=== PATIENT | male | born 1965 | race Caucasian/White ===

== ENCOUNTER → 2016-07-26 | Outpatient (CLI) | payer BC ==
[~2016-07-26] MED LIST: AMLH/550 PO; CALCTAB5 PO; CHOLESTEROL MED PO; FLUO10CA48 PO; HYDR-3419 PO; POTA1080 PO; SIMV-151; TADA5TAB11 PO; [UNRECOGNIZED DRUG - REMARK] PO
[2016-07-26 16:42] LABS: BLOOD UREA NITROGEN 14 mg/dl (7-18); BUN/CREATININE RATIO 13.6 (10-20); CARBON DIOXIDE 29 mmol/L (21-32); CHLORIDE 101 mmol/L (98-107); GLUCOSE 98 mg/dl (70-99); POTASSIUM 3.8 mmol/L (3.5-5.1); SODIUM 139 mmol/L (136-145)
== END | disposition home or self-care (01) ==
LOC: C.LAB 15:29
PROVIDERS: ATTEND Urology
DX: R97.20 Elevated prostate specific antigen [PSA] (principal)

== ENCOUNTER → 2016-11-25 | Outpatient (CLI) | payer BC ==
--- NOTE | 2016-11-25 11:32 | DIAGNOSTIC IMAGING REPORT ---
KUB CLINICAL HISTORY: N20.0 [id number] nephrocalcinosis COMPARISON STUDY: 04/23/2016 FINDINGS: 2 right renal calcifications unchanged from the prior study. Potential faint peripheral left mid pole renal calcification. No significant paravertebral calcifications. Nonobstructive bowel pattern. IMPRESSION: Nephrocalcinosis unchanged from the prior study. Electronically signed by: Rubin Nolen M.D. 11/25/2016 11:31 AM Dictated Date/Time: 11/25/2016 11:30 AM
--- NOTE | 2016-11-29 11:53 | CODING QUERY MEDICAL NECESSITY ---
SUPPORTING DIAGNOSIS NEEDED A supporting diagnosis is required for the test/procedure performed on this patient in order for us to be reimbursed by the patient's insurance. Please provide a supporting diagnosis for the following test/procedure listed below next to the test name along with your signature. *If there is no additional diagnosis for this patient that would support the following test/procedure please document that below next to the test/procedure. Test(s)/Procedure(s) that require a supporting diagnosis: * PSA DIAGNOSIS: Provider Signature: Date: Thank you Shi Parikh [employer] Once completed, please kindly fax back to [phone] For questions please call [phone]
== END | disposition home or self-care (01) ==
LOC: C.RAD 10:52
PROVIDERS: ATTEND Urology
DX: N20.0 Calculus of kidney (principal); E83.59 Other disorders of calcium metabolism; N29 Other disorders of kidney and ureter in diseases classified elsewhere; N40.1 Benign prostatic hyperplasia with lower urinary tract symptoms

== ENCOUNTER → 2016-11-30 | Outpatient (CLI) | payer BC ==
--- NOTE | 2016-11-30 17:28 | DIAGNOSTIC IMAGING REPORT ---
CHEST 2 VIEWS ROUTINE CLINICAL HISTORY: N20.0 [id number] nephrocalcinosis COMPARISON STUDY: 06/24/2015 FINDINGS: The bones soft tissues and hemidiaphragms are normal. The cardiomediastinal silhouette is normal. The lungs are clear. The pulmonary vasculature is normal. IMPRESSION: Negative chest. Electronically signed by: Rubin Nolen M.D. 11/30/2016 5:27 PM Dictated Date/Time: 11/30/2016 5:27 PM
--- NOTE | 2016-11-30 17:30 | DIAGNOSTIC IMAGING REPORT ---
KUB CLINICAL HISTORY: N20.0 [id number] nephrocalcinosis COMPARISON STUDY: 11/25/2016 FINDINGS: Right kidney is obscured by fecal material and cannot be evaluated. No definite left renal central calcifications. Faint calcification peripheral aspect left kidney is unchanged. IMPRESSION: 1. Unchanged punctate peripheral left renal calcification. 2. Right kidney is obscured by fecal material. Electronically signed by: Rubin Nolen M.D. 11/30/2016 5:29 PM Dictated Date/Time: 11/30/2016 5:28 PM
[2016-11-30 17:44] LABS: BASO % 0.3 %; BASO ABS # 0.02 K/uL (0-0.2); COMPLETE YES; EOS % 1.9 %; HEMATOCRIT 43.8 % (42-52); IG% 0.3 %; LYMPH % 22.2 %; LYMPH ABS # 1.42 K/uL (1.2-3.4); MEAN CELL VOLUME 89.9 fL (80-100); MEAN CORPUSCULAR HEMOGLOBIN 31.8 pg (25-34); MEAN CORPUSCULAR HGB CONC 35.4 g/dl (32-36); MEAN PLATELET VOLUME 11.1 fL (7.4-10.4); MONO % 9.5 %; NEUT % 65.8 %; PLATELET COUNT 169 K/uL (130-400); RED BLOOD COUNT 4.87 M/uL (4.7-6.1); WHITE BLOOD COUNT 6.39 K/uL (4.8-10.8)
[2016-11-30 18:04] LABS: BLOOD UREA NITROGEN 18 mg/dl (7-18); BUN/CREATININE RATIO 16.4 (10-20); CALCIUM 9.2 mg/dl (8.5-10.1); CARBON DIOXIDE 30 mmol/L (21-32); CHLORIDE 102 mmol/L (98-107); GLUCOSE 111 mg/dl (70-99); POTASSIUM 3.4 mmol/L (3.5-5.1); SODIUM 140 mmol/L (136-145)
== END | disposition home or self-care (01) ==
LOC: C.CPL 16:25
PROVIDERS: ATTEND Urology
DX: N20.0 Calculus of kidney (principal)

== ENCOUNTER → 2016-12-02 | Outpatient (CLI) | payer BC ==
--- NOTE | 2016-12-02 17:02 | DIAGNOSTIC IMAGING REPORT ---
KUB HISTORY: Nephrolithiasis. COMPARISON: KUB 11/30/2016. FINDINGS: The bowel gas pattern is unremarkable. There are no dilated loops of small bowel to suggest an obstruction. The right kidney is obscured by overlying bowel. No change in the punctate stone within the periphery of the left kidney. No ureteral or bladder calculi identified. No pneumoperitoneum or pneumatosis. IMPRESSION: 1. Right kidney is obscured by overlying bowel. 2. No change in the punctate calcification at the periphery of the left kidney. This may represent a small stone. 3. No ureteral calculi. Electronically signed by: Sundeep Rao M.D. 12/02/2016 5:01 PM Dictated Date/Time: 12/02/2016 4:59 PM
== END | disposition home or self-care (01) ==
LOC: C.RAD 16:16
PROVIDERS: ATTEND Urology
DX: N20.0 Calculus of kidney (principal)

== ENCOUNTER → 2016-12-03 | Day surgery (SDC) | payer BC ==
[2016-12-02 13:49] VITALS: Ht 162.6 cm; Wt 100.0 kg
[~2016-12-03] VITALS: Ht 162.6 cm; Wt 100.0 kg
[~2016-12-03] MED LIST changes: +ATROPINE SULFATE 0.1 MG/ML 5ML SYR IV PRN; +CIPROFLOXACIN 400MG / D5W IV SCH; +DEXAMETHASONE SOD INJ 4 MG/ML VIAL ONE; +FENTANYL CITRATE INJ 50 MCG/1 ML 2 ML VIAL IV PRN; +FENTANYL CITRATE INJ 50 MCG/1 ML 2 ML VIAL ONE; +LABETALOL HCL IV 5 MG/ML 20ML IV PRN; +LACTATED RINGER'S 1000ML 1,000 ML IV SCH; +LIDOCAINE HCL 2% 2 ML VIAL (20MG/ML) ONE; +MIDAZOLAM HCL 1 MG/ML 2ML VIAL ONE; +ONDANSETRON INJ 2 MG/ML 2 ML VIAL IV PRN; +ONDANSETRON INJ 2 MG/ML 2 ML VIAL ONE; +PROPOFOL IV EMULSION 10 MG/ML 20 ML VIAL IV ONE
--- NOTE | 2016-12-03 10:47 | History & Physical Bridge - SC ---
H&P Re-Evaluation Bridge Note: I have examined the patient, reviewed the History & Physical and in the interval since the performance of the History & Physical I have noted the following changes of clinical significance: No changes noted
--- NOTE | 2016-12-03 11:39 | [facility] Post Operative Brief Note ---
Immediate Operative Summary Operative Date Dec 03, 2016. Pre-Operative Diagnosis Right Renal Calculi Post-Operative Diagnosis Same Procedure(s) Performed Same Surgeon Dr. Damon Ford Lathe Puller Surgeon(s) None Estimated Blood Loss 0 Findings stone in r kidney appeared to fragment Specimens Same Disposition Recovery Room / PACU
--- NOTE | 2016-12-03 11:41 | Discharge Instructions-SurgCtr ---
Discharge Instructions Date of Service Dec 03, 2016. Visit Reason for Visit: STONE Discharge Discharge Diagnosis / Problem: post op r eswl Discharge Goals Goal(s): Decrease discomfort, Increase independence, Improve disease control Activity Recommendations Activity Limitations: resume your previous activity Anesthesia . Post Anesthesia Instructions: If you have had General Anesthesia or IV Sedation: * Do not drive today. * Resume driving when surgeon permits. * Do not make important decisions or sign legal documents today. * Call surgeon for: 1. Temperature elevations greater than 101 degrees F. 2. Uncontrollable pain. 3. Excessive bleeding. 4. Persistent nausea and vomiting. 5. Medication intolerance (nausea, vomiting or rash). * For nausea and vomiting use only clear liquids such as: tea, soda, bouillon until nausea subsides, then gradually increase diet as tolerated. * If you have any concerns or questions, call your surgeon's office. If physician is unavailable and it is an emergency, call 911 or go to the nearest emergency room. . Diet Recommendations Home Diet: resume previous diet Procedures Procedures Performed: Same Pending Studies Studies pending at discharge: no Medical Emergencies . Who to Call and When: Medical Emergencies: If at any time you feel your situation is an emergency, please call 911 immediately. . Non-Emergent Contact Non-Emergency issues call your: Urologist . . "Provider Documentation" section prepared by Dano Ford. .
[2016-12-03 12:18] VITALS: TEMP 36.3
[2016-12-03 12:40] VITALS: BP 139/85; PULSE 67; O2SAT 98
--- NOTE | 2016-12-03 13:12 | Anesthesia Progress Nt - [facility] ---
Anesthesia Post Op Note Date & Time Dec 03, 2016 at 13:12 Vital Signs Pain Intensity: 0 Vital Signs Past 12 Hours Date Time Temp Pulse Resp B/P (MAP) Pulse Ox O2 Delivery O2 Flow Rate FiO2 12/03/16 12:40 67 18 139/85 (103) 98 Room Air 12/03/16 12:18 36.3 72 20 145/84 (104) 98 Room Air 12/03/16 12:12 74 20 12/03/16 12:12 76 20 93 12/03/16 12:12 36.6 76 16 123/73 95 Room Air 12/03/16 12:11 123/73 12/03/16 12:07 76 17 96 12/03/16 12:07 76 17 12/03/16 12:06 128/77 12/03/16 12:02 73 15 12/03/16 12:02 74 15 99 12/03/16 12:01 74 16 12/03/16 12:01 76 16 125/84 99 12/03/16 11:56 76 10 12/03/16 11:56 76 10 127/85 99 12/03/16 11:51 80 13 127/70 97 12/03/16 11:51 80 13 12/03/16 11:46 75 7 102/81 96 12/03/16 11:46 76 7 12/03/16 11:46 36.3 77 12 102/81 96 Diffusion Mask 12/03/16 09:25 66 115/73 (87) 94 Room Air 12/03/16 09:20 66 112/73 (86) 93 Room Air 12/03/16 09:15 65 109/69 (82) 93 Room Air 12/03/16 09:10 64 115/74 (88) 94 Room Air 12/03/16 09:05 72 111/74 (86) 97 Room Air 12/03/16 09:01 56 14 107/65 (79) 94 Room Air 12/03/16 08:56 42 16 87/53 (64) 43 Room Air 12/03/16 08:28 36.8 79 20 151/94 (113) 97 Room Air Notes Mental Status: alert / awake / arousable, participated in evaluation Pt Amnestic to Procedure: Yes Nausea / Vomiting: adequately controlled Pain: adequately controlled Airway Patency, RR, SpO2: stable & adequate BP & HR: stable & adequate Hydration State: stable & adequate Anesthetic Complications: no major complications apparent
--- NOTE | 2016-12-03 15:15 | [facility] Operative Report ---
Operative Report Operative Date Dec 03, 2016. Pre-Operative Diagnosis Right Renal Calculi Procedure(s) Performed right renal eswl Surgeon Dr. Damon Ford Cotton Dispatcher Surgeon(s) None Estimated Blood Loss 0 Findings small r renal stone with good fragmentation Specimens Same Disposition Recovery Room / PACU Description of Procedure Patient was taken to the operating room after being given antibiotics and Venodyne stockings had been placed. He was placed in supine position and given general anesthesia. The fluoroscopy of the lithotripsy machine was used to visualize the stone and 2 views. Once the stone was localized patient received 2500 shocks many at level V and at the end of this procedure the stone appeared to fragment. The patient was transferred to recovery room in stable condition I attest to the content of the Intraoperative Record and any orders documented therein. Any exceptions are noted below.
== END | disposition home or self-care (01) ==
LOC: X.SURG 07:47
PROVIDERS: ATTEND Urology
DX: N20.0 Calculus of kidney (principal); I10 Essential (primary) hypertension; Z80.42 Family history of malignant neoplasm of prostate; Z82.49 Family history of ischemic heart disease and other diseases of the circulatory system; Z87.891 Personal history of nicotine dependence; E78.5 Hyperlipidemia, unspecified; Z79.899 Other long term (current) drug therapy

== ENCOUNTER → 2017-03-09 | Outpatient (CLI) | payer BC ==
[~2017-03-09] MED LIST changes: -ATROPINE SULFATE 0.1 MG/ML 5ML SYR IV PRN; -CALCTAB5 PO; -CHOLESTEROL MED PO; -CIPROFLOXACIN 400MG / D5W IV SCH; -DEXAMETHASONE SOD INJ 4 MG/ML VIAL ONE; -FENTANYL CITRATE INJ 50 MCG/1 ML 2 ML VIAL IV PRN; -FENTANYL CITRATE INJ 50 MCG/1 ML 2 ML VIAL ONE; -LABETALOL HCL IV 5 MG/ML 20ML IV PRN; -LACTATED RINGER'S 1000ML 1,000 ML IV SCH; -LIDOCAINE HCL 2% 2 ML VIAL (20MG/ML) ONE; -MIDAZOLAM HCL 1 MG/ML 2ML VIAL ONE; -ONDANSETRON INJ 2 MG/ML 2 ML VIAL IV PRN; -ONDANSETRON INJ 2 MG/ML 2 ML VIAL ONE; -PROPOFOL IV EMULSION 10 MG/ML 20 ML VIAL IV ONE; -TADA5TAB11 PO; -[UNRECOGNIZED DRUG - REMARK] PO
[2017-03-09 17:45] LABS: CHOLESTEROL/HDL RATIO 3.2
== END | disposition home or self-care (01) ==
LOC: C.LABBFT 15:35
PROVIDERS: ATTEND Physician Assistant Medical
DX: E78.5 Hyperlipidemia, unspecified (principal); R73.01 Impaired fasting glucose

== ENCOUNTER → 2017-03-22 | Outpatient (CLI) | payer BC ==
[2017-03-22 17:45] LABS: ALT/SGPT 50 U/L (12-78); AST/SGOT 20 U/L (15-37); BLOOD UREA NITROGEN 19 mg/dl (7-18); BUN/CREATININE RATIO 15.7 (10-20); CARBON DIOXIDE 29 mmol/L (21-32); CHLORIDE 104 mmol/L (98-107); CREATININE 1.19 mg/dl (0.60-1.40); GLUCOSE 107 mg/dl (70-99); POTASSIUM 3.7 mmol/L (3.5-5.1); SODIUM 140 mmol/L (136-145)
[2017-03-22 17:48] LABS: ALKALINE PHOSPHATASE 58 U/L (45-117)
== END | disposition home or self-care (01) ==
LOC: C.LABBFT 14:28
PROVIDERS: ATTEND Physician Assistant Medical
DX: E78.5 Hyperlipidemia, unspecified (principal)

== ENCOUNTER → 2017-07-25 | Outpatient (CLI) | payer BC ==
[~2017-07-25] MED LIST changes: -HYDR-3419 PO
[2017-07-25 17:20] LABS: BLOOD UREA NITROGEN 21 mg/dl (7-18); CALCIUM 9.3 mg/dl (8.5-10.1); CARBON DIOXIDE 30 mmol/L (21-32); CREATININE 1.21 mg/dl (0.60-1.40); GLUCOSE 98 mg/dl (70-99); POTASSIUM 3.7 mmol/L (3.5-5.1); SODIUM 141 mmol/L (136-145)
== END ==
LOC: C.LAB 15:34
PROVIDERS: ATTEND Urology
DX: N20.0 Calculus of kidney (principal)

== ENCOUNTER → 2017-08-24 | Outpatient (CLI) | payer BC | END | disposition home or self-care (01) | LOC: C.LABBFT 15:20 | PROVIDERS: ATTEND Physician Assistant Medical | DX: Z00.00 Encounter for general adult medical examination without abnormal findings (principal) ==

== ENCOUNTER → 2018-01-20 | Outpatient (CLI) | payer BC | END | disposition home or self-care (01) | LOC: C.LAB 13:44 | PROVIDERS: ATTEND Urology | DX: N20.0 Calculus of kidney (principal) ==

== ENCOUNTER 2018-10-24 22:11 | Observation (INO) ==
[2018-10-24] MEDS ORDERED: MoRPHine SULFATE 10 MG/ML CARP/VIAL IV STA (22:58)
[2018-10-24] MEDS ORDERED: SODIUM CHLORIDE 0.9% 1000ML 1,000 ML IV ONE (22:58)
[2018-10-24] MEDS ORDERED: ONDANSETRON INJ 2 MG/ML 2 ML VIAL IV STA (22:58)
[2018-10-24] MEDS ORDERED: MoRPHine SULFATE 4 MG/ML 1 ML CARP\\VIAL ONE (23:11)
[2018-10-24 23:25] LABS: Partial Thromboplastin Ratio 0.9; Partial Thromboplastin Time 25.1 Seconds (21.0-31.0)
[2018-10-24 23:34] LABS: iSTAT Creatinine 1.2 mg/dl (0.6-1.3); iSTAT Ionized Calcium 1.15 mmol/l (1.12-1.32); iSTAT Potassium 3.7 mEq/L (3.3-5.0)
[2018-10-24 23:35] LABS: Alanine Aminotransferase 43 U/L (12-78); Albumin Level 4.1 gm/dl (3.4-5.0); Aspartate Aminotransferase 29 U/L (15-37); BUN Creatinine Ratio 12.5 (10-20); Blood Urea Nitrogen 15 mg/dl (7-18); Calcium 9.6 mg/dl (8.5-10.1); Carbon Dioxide 29 mmol/L (21-32); Chloride 105 mmol/L (98-107); Creatinine Clr Calc Pharmacy 76.7 ml/min; Est GFR (African American) 79.3; Est GFR (Non-African American) 68.4; Glucose 123 mg/dl (70-99); Potassium 3.4 mmol/L (3.5-5.1); Sodium 140 mmol/L (136-145)
[2018-10-24 23:39] LABS: Appearance Urine Clear (Clear); Bilirubin Urine Negative (Negative); Blood Urine Negative (Negative); Color Urine Yellow; Glucose Urine UA Negative (Negative); Ketones Urine Negative (Negative); Leukocyte Esterase Urine Negative (Negative); Nitrite Urine Negative (Negative); Protein Urine Negative (Negative); Specific Gravity Urine 1.023 (1.000-1.030); Urobilinogen Urine Negative (Negative)
[2018-10-24 23:40] LABS: Alkaline Phosphatase 70 U/L (45-117); Bilirubin,Total 0.3 mg/dl (0.2-1); Globulin 4.3 gm/dl (2.5-4.0); Total Protein 8.4 gm/dl (6.4-8.2); Troponin I < 0.015 ng/ml (0-0.045)
[2018-10-24 23:53] LABS: Basophils # (auto) 0.02 K/uL (0-0.2); Basophils % (auto) 0.2 %; Eosinophils # (auto) 0.09 K/uL (0-0.5); Eosinophils % (auto) 0.9 %; Hematocrit (blood only) 47.8 % (42-52); Hemoglobin 16.8 g/dL (14.0-18.0); Immature Granulocytes # (auto) 0.02 K/uL (0.00-0.02); Immature Granulocytes % (auto) 0.2 %; Lymphocytes # (auto) 1.24 K/uL (1.2-3.4); Lymphocytes % (auto) 12.3 %; Mean Corpuscular Hgb Conc 35.1 g/dL (32-36); Mean Platelet Volume 10.8 fL (7.4-10.4); Monocytes # (auto) 0.55 K/uL (0.11-0.59); Monocytes % (auto) 5.5 %; Neutrophils # (auto) 8.17 K/uL (1.4-6.5); Neutrophils % (auto) 80.9 %; Platelet Count 203 K/uL (130-400); RDW Coefficient of Variation 12.9 % (11.5-14.5); Red Blood Count 5.43 M/uL (4.7-6.1); White Blood Count 10.09 K/uL (4.8-10.8)
[2018-10-25] MEDS: MoRPHine SULFATE 4 MG/ML 1 ML CARP\\VIAL IV PRN ×4 (00:03→07:55)
--- NOTE | 2018-10-25 00:51 | Emergency Department Note ---
History of Present Illness General Chief Complaint: Abdominal Pain Stated Complaint: ABDOMINAL PAIN, BACK PAIN, SWEATS, VOMITING Source: patient Mode of arrival: ambulatory Limitations: no limitations History of Present Illness Provider Complaint: abdominal pain Onset (ago): 5 hour(s) Pain Consistency: constant Location: RUQ and epigastric Radiation: back Migration to: no migration Severity: severe Maximum Pain Intensity: 6 Current Pain Intensity: 6 Quality: + fullness and + sharp Relieved By: + other (leaning forward) Exacerbated By: + eating Context: + history of similar episodes (x1 year associated with eating) Associated Symptoms: + nausea, + vomiting, + chills and + anorexia Treatments prior to arrival: none This 53-year-old male patient presents emergency department today, ambulatory, complaining of severe epigastric and right upper quadrant abdominal pain. The patient states he ate a hokey this evening which had a lot of oil. He states this was at approximately 5 PM. He noticed that his abdomen and felt extremely full at approximately 5 PM. He then developed vomiting and diaphoresis. Patient reports the pain is in the epigastrium radiating to the right upper quadrant and the back. He is taken no medications for his symptoms, but was drinking water. He states the water seem to flareup the pain as well. The patient denies any fever, diarrhea, constipation, chest pain, difficulty breathing. He states the pain does seem worse with deep breathing. He does have a history of similar symptoms for the past 1 year, worse with eating. He has not had this evaluated. He has been taking Nexium outpatient. The patient rates his pain 6/10 and describes it as a fullness. Home Medications Home Medications Medication Instructions Recorded Confirmed Type amiloride-hydrochlorothiazide 1 tab PO QAM 03/03/18 10/24/18 History potassium chloride 10 meq PO TID 03/03/18 10/24/18 History simvastatin 20 mg PO HS 03/03/18 10/24/18 History escitalopram oxalate 10 mg PO QAM 03/15/18 10/24/18 History ergocalciferol (vitamin D2) 50,000 unit PO WK 10/24/18 10/24/18 History [Vitamin D2] Allergies Allergy/AdvReac Type Severity Reaction Status Date / Time No Known Allergies Allergy Unknown Verified 10/24/18 22:35 Past Med/Surg History Medical History Encounter for screening colonoscopy Encounter for pre-operative examination Anxiety Depression HTN (hypertension) History of cellulitis LEFT LEG Kidney stones Obesity Seizure HX A CHILD-LAST AGE 11 YRS-NO MEDS SINCE CHILDHOOD Surgical History H/O lithotripsy X 3 Hx of shoulder surgery LEFT S/P cystoscopy with ureteral stent placement Family History Father Prostate cancer Social History Preferred Language: Faroese Communication Ability: Effective Beliefs That Will Affect Care: None Current Living Situation: Family Feels Safe at Home: Yes Smoking Status: Never smoker Tobacco Type: cigarettes Second Hand Exposure: No Hx Alcohol Use: Yes (hesitant to answer) Alcohol type: beer Hx Substance Use: No Review of Systems A total of 10 systems reviewed and were otherwise negative Physical Exam Vital Signs: Vital Signs - 24 hr 10/24/18 22:19 10/24/18 23:31 10/25/18 00:06 Temperature 36.4 C L Temperature Source Oral Sepsis Recent Feve r Within 48 Hours No Sepsis New/Unexpla ined Change in Men ann-marie Status No Sepsis Action Take n by Nursing No Action Required Pulse Rate 58 L Pulse Rate [Bilate ral] 56 L 56 L Pulse Rhythm Regular Pulse Rhythm [Bila teral] Regular Regular Pulse Strength Normal Pulse Strength [Bi lateral] Normal Normal Respiratory Rate 20 17 18 Respiratory Effort / Characteristics Non-Labored Sponta neous Non-Labored Sponta neous Non-Labored Sponta neous Respiratory Depth Normal Normal Normal Respiratory Patter n Regular Regular Blood Pressure 199/108 H Blood Pressure [Le ft Arm] 194/100 H Blood Pressure Sera n 138 Blood Pressure Sera n [Left Arm] 131 Blood Pressure Pos ition Sitting Blood Pressure Pos ition [Left Arm] Lying Pulse Oximetry 97 97 95 Oxygen Delivery Me thod Room Air Room Air Room Air Oxygen Flow Rate 10/25/18 00:52 Temperature Temperature Source Sepsis Recent Feve r Within 48 Hours Sepsis New/Unexpla ined Change in Men ann-marie Status Sepsis Action Take n by Nursing Pulse Rate Pulse Rate [Bilate ral] Pulse Rhythm Pulse Rhythm [Bila teral] Pulse Strength Pulse Strength [Bi lateral] Respiratory Rate Respiratory Effort / Characteristics Respiratory Depth Respiratory Patter n Blood Pressure Blood Pressure [Le ft Arm] Blood Pressure Sera n Blood Pressure Sera n [Left Arm] Blood Pressure Pos ition Blood Pressure Pos ition [Left Arm] Pulse Oximetry 87 L Oxygen Delivery Me thod Room Air Nasal Can nula Oxygen Flow Rate 0 Physical Exam: VITALS: Vitals are noted on the nurse's note and reviewed by myself. Vital signs stable. GENERAL: This is a 53-year-old white male, in no acute distress, but moving around due to severe pain, diaphoretic, well-developed well-nourished. SKIN: The skin was without rashes, erythema, edema, or bruising. There is no tenting of the skin. Capillary reflex less than 2 seconds. HEAD: Normocephalic atraumatic. EARS: External auditory canals clear, tympanic membranes pearly aviles without erythema or effusion bilaterally. EYES: Pupils equal round and reactive to light and accommodation. Conjunctivae without injection, sclerae without icterus. Extraocular movements intact. NOSE: Patent, turbinates without inflammation or discharge. No sinus tenderness. MOUTH: Mucous membranes moist. Tonsils are not enlarged. Pharynx without erythema or exudate. Uvula midline. Airway patent. Tongue does not deviate. NECK: Supple without nuchal rigidity. No lymphadenopathy. No thyromegaly. Cervical spine is nontender. No JVD. HEART: Regular rate and rhythm without murmurs gallops or rubs. LUNGS: Clear to auscultation bilaterally without wheezes, rales or rhonchi. No dullness to percussion. No retractions or accessory muscle use. ABDOMEN: Positive bowel sounds x 4. Normal tympanic percussion. Epigastric and right upper quadrant tenderness palpation. The abdomen was distended, but without masses or organomegaly. Valle sign positive. No guarding or rebound tenderness. MUSCULOSKELETAL: No muscle atrophy, erythema, or edema noted. Full range of motion without joint tenderness in all extremities. No tenderness to palpation. Normal gait. Strength 5/5 throughout. NEURO: Patient was alert and oriented to person place and time. Normal sensation to light and sharp touch. Deep tendon reflexes 2+ throughout. No focal neurological deficits. Course The patient was seen and evaluated as above. IV access obtained, labs drawn. Patient was given IV fluids, Zofran, and morphine. Imaging performed and reviewed by myself and radiologist as above. Patient given repeat dose of morphine. Labs reviewed by myself. I discussed the findings with the patient at bedside. I discussed the case with my attending. I discussed the case with Dr. Deleon, general surgeon. She did agree to see and evaluate the patient and place orders for admission. Please see her dictation regarding ongoing management care of this patient. Administered Medications Morphine Sulfate (Morphine Sulfate) 4 mg IV NOW PRN PRN Reason: Pain Stop: 11/07/18 23:58 Last Admin: 10/25/18 00:51 Dose: 4 mg Documented by: [id number] Admin: 10/25/18 00:03 Dose: 4 mg Documented by: [id number] Discontinued Medications Sodium Chloride (Nss 1000ml) 1,000 mls @ 999 mls/hr IV .Q1H1M ONE Stop: 10/24/18 23:58 Last Infusion: 10/25/18 00:21 Dose: 0 mls/hr Documented by: [id number] Admin: 10/24/18 23:19 Dose: 999 mls/hr Documented by: [id number] Morphine Sulfate (Morphine Sulfate) 8 mg IV NOW STA Stop: 10/24/18 22:59 Last Admin: 10/24/18 23:19 Dose: Not Given Documented by: [id number] Morphine Sulfate (Morphine Sulfate) Confirm Administered Dose 8 mg .ROUTE .STK- MED ONE Stop: 10/24/18 23:12 Last Admin: 10/24/18 23:17 Dose: 8 mg Documented by: [id number] Ondansetron HCl (Zofran) 4 mg IV NOW STA Stop: 10/24/18 22:59 Last Admin: 10/24/18 23:17 Dose: 4 mg Documented by: [id number] Medical Decision Making Differential Diagnosis + peptic ulcer disease, + biliary pathology, + UTI, + obstruction, + mesenteric ischemia, + aortic pathology, + infections, + inflammatory bowel disease, + renal colic, + torsion (male), + epididymitis (male), + abdominal pain, + appendicitis, + calculus of kidney, + constipation, + diverticulitis, + endometriosis, + gastroenteritis, + pancreatitis and + small bowel obstruction Home Medications Current Medication List: was personally reviewed by me Laboratory Data Attestation: I reviewed the patient's lab results. No leukocytosis, anemia, thrombocytopenia. Renal, hepatic function, and electrolytes without significant abnormality. Mild hyperglycemia 123. Coags normal. Urinalysis without evidence of blood or infection. Result diagrams: 10/24/18 22:40 10/24/18 22:40 Lab Results 10/24/18 10/24/18 10/24/18 Range/Units 22:40 22:40 22:40 WBC 10.09 (4.8-10.8) K/uL RBC 5.43 (4.7-6.1) M/uL Hgb 16.8 (14.0-18.0) g/dL POC Hgb (14.0-18.0) g/dl Hct 47.8 (42-52) % POC Hct (42-52) % MCV 88.0 (80-100) fL MCH 30.9 (25-34) pg MCHC 35.1 (32-36) g/dL RDW Std Deviation 41.0 (36.4-46.3) fL RDW Coeff of Beto 12.9 (11.5-14.5) % Plt Count 203 (130-400) K/uL MPV 10.8 H (7.4-10.4) fL Immature Gran % (Auto) 0.2 % Neut % (Auto) 80.9 % Lymph % (Auto) 12.3 % Keith % (Auto) 5.5 % Eos % (Auto) 0.9 % Baso % (Auto) 0.2 % Immature Gran # (Auto) 0.02 (0.00-0.02) K/uL Neut # (Auto) 8.17 H (1.4-6.5) K/uL Lymph # (Auto) 1.24 (1.2-3.4) K/uL Keith # (Auto) 0.55 (0.11-0.59) K/uL Eos # (Auto) 0.09 (0-0.5) K/uL Baso # (Auto) 0.02 (0-0.2) K/uL PT 10.0 (9.0-12.0) Seconds INR 1.0 (0.9-1.1) APTT 25.1 (21.0-31.0) Seconds PTT Ratio 0.9 POC Sodium (135-144) mEq/L Sodium 140 (136-145) mmol/L POC Potassium (3.3-5.0) mEq/L Potassium 3.4 L (3.5-5.1) mmol/L POC Chloride (101-112) mEq/L Chloride 105 (98-107) mmol/L Carbon Dioxide 29 (21-32) mmol/L POC Total CO2 (24-31) mEq/l Anion Gap 7.0 (3-11) POC Anion Gap (16-25) mmol/L POC BUN (7-18) mg/dl BUN 15 (7-18) mg/dl Creatinine 1.21 (0.6-1.4) mg/dl POC Creatinine (0.6-1.3) mg/dl Est Cr Clr Drug Dosing 76.7 ml/min Est GFR ( Amer) 79.3 Est GFR (Non-Af Amer) 68.4 BUN/Creatinine Ratio 12.5 (10-20) Glucose 123 H (70-99) mg/dl POC Glucose (other) (70-99) mg/dl Calcium 9.6 (8.5-10.1) mg/dl POC Ioniz Calcium Donavon (1.12-1.32) mmol/l Total Bilirubin 0.3 (0.2-1) mg/dl AST 29 (15-37) U/L ALT 43 (12-78) U/L Alkaline Phosphatase 70 (45-117) U/L Troponin I < 0.015 (0-0.045) ng/ml Total Protein 8.4 H (6.4-8.2) gm/dl Albumin 4.1 (3.4-5.0) gm/dl Globulin 4.3 H (2.5-4.0) gm/dl Albumin/Globulin Ratio 1.0 (0.9-2) Lipase 117 (73-393) U/L Urine Color Urine Appearance (Clear) Urine pH (4.5-7.5) Ur Specific [place] (1.000-1.030) Urine Protein (Negative) Urine Glucose (UA) (Negative) Urine Ketones (Negative) Urine Blood (Negative) Urine Nitrite (Negative) Urine Bilirubin (Negative) Urine Urobilinogen (Negative) Ur Leukocyte Esterase (Negative) 10/24/18 10/24/18 Range/Units 23:00 23:19 WBC (4.8-10.8) K/uL RBC (4.7-6.1) M/uL Hgb (14.0-18.0) g/dL POC Hgb 16.0 (14.0-18.0) g/dl Hct (42-52) % POC Hct 47 (42-52) % MCV (80-100) fL MCH (25-34) pg MCHC (32-36) g/dL RDW Std Deviation (36.4-46.3) fL RDW Coeff of Beto (11.5-14.5) % Plt Count (130-400) K/uL MPV (7.4-10.4) fL Immature Gran % (Auto) % Neut % (Auto) % Lymph % (Auto) % Keith % (Auto) % Eos % (Auto) % Baso % (Auto) % Immature Gran # (Auto) (0.00-0.02) K/uL Neut # (Auto) (1.4-6.5) K/uL Lymph # (Auto) (1.2-3.4) K/uL Keith # (Auto) (0.11-0.59) K/uL Eos # (Auto) (0-0.5) K/uL Baso # (Auto) (0-0.2) K/uL PT (9.0-12.0) Seconds INR (0.9-1.1) APTT (21.0-31.0) Seconds PTT Ratio POC Sodium 142 (135-144) mEq/L Sodium (136-145) mmol/L POC Potassium 3.7 (3.3-5.0) mEq/L Potassium (3.5-5.1) mmol/L POC Chloride 100 L (101-112) mEq/L Chloride (98-107) mmol/L Carbon Dioxide (21-32) mmol/L POC Total CO2 27 (24-31) mEq/l Anion Gap (3-11) POC Anion Gap 19.0 (16-25) mmol/L POC BUN 16 (7-18) mg/dl BUN (7-18) mg/dl Creatinine (0.6-1.4) mg/dl POC Creatinine 1.2 (0.6-1.3) mg/dl Est Cr Clr Drug Dosing ml/min Est GFR ( Amer) Est GFR (Non-Af Amer) BUN/Creatinine Ratio (10-20) Glucose (70-99) mg/dl POC Glucose (other) 137 H (70-99) mg/dl Calcium (8.5-10.1) mg/dl POC Ioniz Calcium Don[place]on 1.15 (1.12-1.32) mmol/l Total Bilirubin (0.2-1) mg/dl AST (15-37) U/L ALT (12-78) U/L Alkaline Phosphatase (45-117) U/L Troponin I (0-0.045) ng/ml Total Protein (6.4-8.2) gm/dl Albumin (3.4-5.0) gm/dl Globulin (2.5-4.0) gm/dl Albumin/Globulin Ratio (0.9-2) Lipase (73-393) U/L Urine Color Yellow Urine Appearance Clear (Clear) Urine pH 5.0 (4.5-7.5) Ur Specific [place] 1.023 (1.000-1.030) Urine Protein Negative (Negative) Urine Glucose (UA) Negative (Negative) Urine Ketones Negative (Negative) Urine Blood Negative (Negative) Urine Nitrite Negative (Negative) Urine Bilirubin Negative (Negative) Urine Urobilinogen Negative (Negative) Ur Leukocyte Esterase Negative (Negative) Imaging Data Radiologist's Impression: US ABDOMEN LIMITED: Cholelithiasis without inflammatory changes. Distended common bile duct measuring about 1 cm. Positive sonographic Valle sign. Hepatic and renal cysts. Pancreas is obscured. Radiologist: Joana Mckeon M.D. ECG Data Attestation: I personally reviewed and interpreted this ECG as follows: Indication: abdominal pain Rate (beats per minute): 56 Rhythm: sinus bradycardia Findings: + RBBB (incomplete); no acute ischemic change and no ectopy Comparison ECG Date: from (March 2018) Change: no significant change Blood Pressure Blood Pressure Findings: Elevated blood pressure Blood Pressure Disposition: elevated BP felt to be situational MDM Narrative This 53-year-old male patient presents emergency department today complaining of severe epigastric and right upper quadrant abdominal pain which began after eating a hoagie. The patient has been expensing intermittent symptoms for 1 year, but this is the most severe he has ever experienced. His pain is very difficult to control, but he does well with IV narcotics. He was experiencing intractable nausea vomiting prior to arrival. He was medicated in the emergency department with IV fluids and Zofran in addition to the pain medicine. Ultrasound shows evidence of cholelithiasis without inflammatory changes. There is a distended CBD 1 cm with a positive sonographic Valle sign. I suspect cholecystitis as the etiology of the patient's pain and consulted the general s urgeon conservation science teacher. Spoke with Dr. Deleon and advised her if the patient condition. She did agree to see and evaluate the patient and admit him for further work- up. I discussed this recommendation with the patient and his at bedside. They were agreeable. Please see Dr. Deleon's dictation regarding ongoing management care of this patient. The chart was completed utilizing [employer] voice recognition software. Grammatical errors, random word insertions, pronoun errors, and incomplete se ntences are an occasional consequence of this system due to software limitations, ambient noise, and hardware issues. Any formal questions or concerns about the content, text, or information contained within the body of this dictation should be directly addressed to the provider for clarification. Impression & Plan Abdominal pain, acute, right upper quadrant, Cholelithiasis, Common bile duct dilatation Discharge Plan Visit Data Chief Complaint: Abdominal Pain Stated Complaint: ABDOMINAL PAIN, BACK PAIN, SWEATS, VOMITING ED Provider: Elian Leigh ED Midlevel Provider: Edith Win Discharge Problem: Abdominal pain, acute, right upper quadrant, Cholelithiasis, Common bile duct dilatation Patient Disposition: Admitted As Inpatient Forms Stand Alone Forms: Call Back Authorization, [facility] Prescriptions Prescriptions: No Action ergocalciferol (vitamin D2) [Vitamin D2] 50,000 unit capsule 50,000 unit PO WK RF: 0 potassium chloride 10 mEq Capsule, Extended Release 10 meq PO TID RF: 0 amiloride-hydrochlorothiazide 5-50 mg Tablet 1 tab PO QAM RF: 0 simvastatin 20 mg Tablet 20 mg PO HS RF: 0 escitalopram oxalate 10 mg Tablet 10 mg PO QAM RF: 0 Referrals Referrals: Maynor Engle III, MD [Primary Care Provider] -
[2018-10-25] MEDS ORDERED: ONDANSETRON INJ 2 MG/ML 2 ML VIAL IV PRN ×2 (02:05→10:24)
[2018-10-25] MEDS ORDERED: OXYCODONE/ACETAMINOPHEN 5mg/325mg TAB PO PRN (02:05)
[2018-10-25] MEDS ORDERED: MoRPHine SULFATE 2 MG/ML CARP IV PRN ×2 (02:05)
[2018-10-25] MEDS: LACTATED RINGER'S 1,000 ML IV SCH ×2 (03:03→13:42)
[2018-10-25] MEDS: AMPICILLIN/SULBACTAM SOD 1,500 MG in 0.9 % SODIUM CHLORIDE 100 ML IV SCH ×4 (03:03→21:02)
[2018-10-25] MEDS: HydrALAZINE HCL 20 MG/ML VIAL IV PRN ×2 (03:17→07:54)
[2018-10-25] MEDS: OXYCODONE/ACETAMINOPHEN 5mg/325mg TAB PO PRN ×2 (05:40→09:30)
--- NOTE | 2018-10-25 06:24 | XRay Report ---
XR chest 1V portable HISTORY: 53 years-old Male epigastric pain acute epigastric abdominal pain COMPARISON: Chest radiograph 03/15/2018 TECHNIQUE: Portable AP view of the chest FINDINGS: Cardiomediastinal and hilar silhouettes are within normal limits. No pneumothorax, pleural effusion, focal airspace consolidation or overt pulmonary edema. Healed remote distal left clavicular fracture with postoperative changes or post traumatic osteolysis of the distal left clavicle. IMPRESSION: No acute process. The above report was generated using voice recognition software. It may contain grammatical, syntax o r spelling errors. Electronically signed by: Braulio Castillo M.D. 10/25/2018 6:22 AM
--- NOTE | 2018-10-25 07:20 | Ultrasound Report ---
ABDOMINAL ULTRASOUND, RIGHT UPPER QUADRANT HISTORY: RUQ and epigastric pain/tenderness. COMPARISON: Abdomen and pelvis CT 03/15/2018. FINDINGS: Pancreas: Obscured by overlying bowel gas. Liver: The liver is echogenic consistent with fatty change. A 2.3 cm cyst within the left hepatic lob e. Gallbladder: No gallbladder wall thickening. A few gallstones with the largest in the neck measuring 2.2 cm. The technologist reported positive sonographic Valle's sign. CBD: Measuring up to 1 cm. Right kidney: No hydronephrosis. A 3.7 cm cyst. IMPRESSION: Cholelithiasis without significant gallbladder wall thickening. The common bile duct is distended up to 1 cm. In the setting of a positive sonographic Valle's sign this is concerning for acute cholecys titis. Clinical correlation recommended. Electronically signed by: Sundeep Rao M.D. 10/25/2018 7:18 AM
[2018-10-25] MEDS: ESCITALOPRAM OXALATE 10 MG TAB PO SCH (08:06)
[2018-10-25] MEDS: AMILORIDE/HCTZ 5/50MG TAB PO SCH (08:06)
[2018-10-25] MEDS: POTASSIUM CHLORIDE 10 MEQ TABCR PO SCH ×3 (08:06→20:49)
--- NOTE | 2018-10-25 08:48 | History & Physical Report ---
Date of Service October 25, 2018 Assessment & Plan (1) Abdominal pain, acute, right upper quadrant: This patient has right upper quadrant pain with cholelithiasis. There is evidence that the common bile duct is dilated but his LFTs are normal. He has had symptoms similar to this in the past but they have resolved. He may have early cholecystitis. There is no wall thickening by ultrasound at the present time. I recommended cholecystectomy. I explained we will going to try to do a laparoscopically but that it may need to be converted to an open procedure. He understands. I explained the possible complications and answered his questions. He has signed a consent form. His blood pressure is elevated with diastolics between 101 110. His systolics have been above 170. I have consulted internal medicine for help with blood pressure control. History of Present Illness Chief Complaint: Right upper quadrant abdominal pain Primary Care Provider: Maynor Engle MD This is a 53-year-old male who presented to the emergency room with a complaint of right upper quadrant pain. It began last night after having eaten hoagie at 5:00. The pain is located in the right subcostal region and extends up into the lower right thorax area. If he takes a deep breath it is exacerbated. Pain was also exacerbated during the ultrasound. The pain was sharp. He is received morphine for pain. That has decreased the pain to more of a dull ache but it is still fairly intense. He has had pain similar to this in the past however it resolved spontaneously. This was associated with some nausea. He has not had a change in his bowel habits beyond what happened after a colonoscopy. He has occasional hematochezia following his polypectomy. There is no melena. He has no shortness of breath. His blood pressure since admission has been elevated. He has a history of hypertension. Allergies Allergy/AdvReac Type Severity Reaction Status Date / Time No Known Allergies Allergy Unknown Verified 10/24/18 22:35 Home Medications Home Medications Medication Instructions Recorded Confirmed Type amiloride-hydrochlorothiazide 1 tab PO QAM 03/03/18 10/24/18 History potassium chloride 10 meq PO TID 03/03/18 10/24/18 History simvastatin 20 mg PO HS 03/03/18 10/24/18 History escitalopram oxalate 10 mg PO QAM 03/15/18 10/24/18 History ergocalciferol (vitamin D2) 50,000 unit PO WK 10/24/18 10/24/18 History [Vitamin D2] Past Med/Surg History Family History Father Prostate cancer Social History Preferred Language: Samoan Communication Ability: Effective Marketing Regional Consultant Required: No Beliefs That Will Affect Care: None Current Living Situation: Family Feels Safe at Home: Yes Safety Concerns: Feels Safe At This Time Smoking Status: Never smoker Tobacco Type: cigarettes Second Hand Exposure: No Hx Alcohol Use: Yes Alcohol type: beer Hx Substance Use: No Review of Systems Review of Systems: All systems reviewed & are unremarkable except as noted in HPI & below Physical Exam Constitutional: well developed; no acute distress Neck: normal visual inspection Respiratory: normal respiratory effort, lungs clear to auscultation Cardiovascular: Rate/Rhythm: regular rate and regular rhythm Gastrointestinal (Abdomen): Inspection/Auscultation: abdomen not distended Percussion/Palpation: + abdomen tender (Right upper quadrant and subcostal region to moderate palpation) and abdomen soft Skin: no rashes, warm and dry Lymphatic: no cervical lymphadenopathy Results & Data Vital Signs (Past 12 Hours) Vital Signs Temp Pulse Pulse Pulse Pulse Resp BP 10/25/18 07:35 37.1 C 104 H 20 10/25/18 06:07 10/25/18 03:59 10/25/18 02:09 36.5 C 49 L 18 10/25/18 01:53 57 L 18 196/106 H 10/25/18 00:52 10/25/18 00:06 56 L 18 10/24/18 23:31 56 L 17 10/24/18 22:19 36.4 C L 58 L 20 199/108 H BP Pulse Ox 10/25/18 07:35 182/102 H 92 10/25/18 06:07 166/98 H 10/25/18 03:59 173/103 H 10/25/18 02:09 197/108 H 96 10/25/18 01:53 97 10/25/18 00:52 87 L 10/25/18 00:06 194/100 H 95 10/24/18 23:31 97 10/24/18 22:19 97 Laboratory Results 10/24/18 10/24/18 10/24/18 Range/Units 23:19 23:00 22:40 WBC (4.8-10.8) K/uL RBC (4.7-6.1) M/uL Hgb (14.0-18.0) g/dL POC Hgb 16.0 (14.0-18.0) g/dl Hct (42-52) % POC Hct 47 (42-52) % MCV (80-100) fL MCH (25-34) pg MCHC (32-36) g/dL RDW Std Deviation (36.4-46.3) fL RDW Coeff of Beto (11.5-14.5) % Plt Count (130-400) K/uL MPV (7.4-10.4) fL Immature Gran % (Auto) % Neut % (Auto) % Lymph % (Auto) % [place] % (Auto) % Eos % (Auto) % Baso % (Auto) % Immature Gran # (Auto) (0.00-0.02) K/uL Neut # (Auto) (1.4-6.5) K/uL Lymph # (Auto) (1.2-3.4) K/uL [place] # (Auto) (0.11-0.59) K/uL Eos # (Auto) (0-0.5) K/uL Baso # (Auto) (0-0.2) K/uL PT (9.0-12.0) Seconds INR (0.9-1.1) APTT (21.0-31.0) Seconds PTT Ratio POC Sodium 142 (135-144) mEq/L Sodium 140 (136-145) mmol/L POC Potassium 3.7 (3.3-5.0) mEq/L Potassium 3.4 L (3.5-5.1) mmol/L POC Chloride 100 L (101-112) mEq/L Chloride 105 (98-107) mmol/L Carbon Dioxide 29 (21-32) mmol/L POC Total CO2 27 (24-31) mEq/l Anion Gap 7.0 (3-11) POC Anion Gap 19.0 (16-25) mmol/L POC BUN 16 (7-18) mg/dl BUN 15 (7-18) mg/dl Creatinine 1.21 (0.6-1.4) mg/dl POC Creatinine 1.2 (0.6-1.3) mg/dl Est Cr Clr Drug Dosing 76.7 ml/min Est GFR ( Amer) 79.3 Est GFR (Non-Af Amer) 68.4 BUN/Creatinine Ratio 12.5 (10-20) Glucose 123 H (70-99) mg/dl POC Glucose (other) 137 H (70-99) mg/dl Calcium 9.6 (8.5-10.1) mg/dl POC Ioniz Calcium [place] 1.15 (1.12-1.32) mmol/l Total Bilirubin 0.3 (0.2-1) mg/dl AST 29 (15-37) U/L ALT 43 (12-78) U/L Alkaline Phosphatase 70 (45-117) U/L Troponin I < 0.015 (0-0.045) ng/ml Total Protein 8.4 H (6.4-8.2) gm/dl Albumin 4.1 (3.4-5.0) gm/dl Globulin 4.3 H (2.5-4.0) gm/dl Albumin/Globulin Ratio 1.0 (0.9-2) Lipase 117 (73-393) U/L Urine Color Yellow Urine Appearance Clear (Clear) Urine pH 5.0 (4.5-7.5) Ur Specific [place] 1.023 (1.000-1.030) Urine Protein Negative (Negative) Urine Glucose (UA) Negative (Negative) Urine Ketones Negative (Negative) Urine Blood Negative (Negative) Urine Nitrite Negative (Negative) Urine Bilirubin Negative (Negative) Urine Urobilinogen Negative (Negative) Ur Leukocyte Esterase Negative (Negative) 10/24/18 10/24/18 Range/Units 22:40 22:40 WBC 10.09 (4.8-10.8) K/uL RBC 5.43 (4.7-6.1) M/uL Hgb 16.8 (14.0-18.0) g/dL POC Hgb (14.0-18.0) g/dl Hct 47.8 (42-52) % POC Hct (42-52) % MCV 88.0 (80-100) fL MCH 30.9 (25-34) pg MCHC 35.1 (32-36) g/dL RDW Std Deviation 41.0 (36.4-46.3) fL RDW Coeff of Beto 12.9 (11.5-14.5) % Plt Count 203 (130-400) K/uL MPV 10.8 H (7.4-10.4) fL Immature Gran % (Auto) 0.2 % Neut % (Auto) 80.9 % Lymph % (Auto) 12.3 % [place] % (Auto) 5.5 % Eos % (Auto) 0.9 % Baso % (Auto) 0.2 % Immature Gran # (Auto) 0.02 (0.00-0.02) K/uL Neut # (Auto) 8.17 H (1.4-6.5) K/uL Lymph # (Auto) 1.24 (1.2-3.4) K/uL [place] # (Auto) 0.55 (0.11-0.59) K/uL Eos # (Auto) 0.09 (0-0.5) K/uL Baso # (Auto) 0.02 (0-0.2) K/uL PT 10.0 (9.0-12.0) Seconds INR 1.0 (0.9-1.1) APTT 25.1 (21.0-31.0) Seconds PTT Ratio 0.9 POC Sodium (135-144) mEq/L Sodium (136-145) mmol/L POC Potassium (3.3-5.0) mEq/L Potassium (3.5-5.1) mmol/L POC Chloride (101-112) mEq/L Chloride (98-107) mmol/L Carbon Dioxide (21-32) mmol/L POC Total CO2 (24-31) mEq/l Anion Gap (3-11) POC Anion Gap (16-25) mmol/L POC BUN (7-18) mg/dl BUN (7-18) mg/dl Creatinine (0.6-1.4) mg/dl POC Creatinine (0.6-1.3) mg/dl Est Cr Clr Drug Dosing ml/min Est GFR ( Amer) Est GFR (Non-Af Amer) BUN/Creatinine Ratio (10-20) Glucose (70-99) mg/dl POC Glucose (other) (70-99) mg/dl Calcium (8.5-10.1) mg/dl POC Ioniz Calcium [place] (1.12-1.32) mmol/l Total Bilirubin (0.2-1) mg/dl AST (15-37) U/L ALT (12-78) U/L Alkaline Phosphatase (45-117) U/L Troponin I (0-0.045) ng/ml Total Protein (6.4-8.2) gm/dl Albumin (3.4-5.0) gm/dl Globulin (2.5-4.0) gm/dl Albumin/Globulin Ratio (0.9-2) Lipase (73-393) U/L Urine Color Urine Appearance (Clear) Urine pH (4.5-7.5) Ur Specific [place] (1.000-1.030) Urine Protein (Negative) Urine Glucose (UA) (Negative) Urine Ketones (Negative) Urine Blood (Negative) Urine Nitrite (Negative) Urine Bilirubin (Negative) Urine Urobilinogen (Negative) Ur Leukocyte Esterase (Negative) Diagnostic Findings [place] [phone] Ultrasound Report Patient: WARD GALVAN DAdmit Date: 10/25/18 MR#: [id number]: [id number] [address] [facility] Acct ID:[id number]: Date: 1965[facility] Zip: [place] [address] Age: 53Location: 3N Sex: M Room/Bed: [facility] Att Phy: Niru Deleon MDDiagnosis: acute cholecytitis Kelly Phy: Maynor Engle III, MDService Date: 10/24/18 Fam Phy: Interpreting Phy: Sundeep Rao MD Admit Phy: Niru Deleon MD Ordering Phy: Edith Win PA-C cc: ~ ABDOMINAL ULTRASOUND, RIGHT UPPER QUADRANT HISTORY: RUQ and epigastric pain/tenderness. COMPARISON: Abdomen and pelvis CT 03/15/2018. FINDINGS: Pancreas: Obscured by overlying bowel gas. Liver: The liver is echogenic consistent with fatty change. A 2.3 cm cyst within the left hepatic lobe. Gallbladder: No gallbladder wall thickening. A few gallstones with the largest in the neck measuring 2.2 cm. The technologist reported positive sonographic Valle's sign. CBD: Measuring up to 1 cm. Right kidney: No hydronephrosis. A 3.7 cm cyst. IMPRESSION: Cholelithiasis without significant gallbladder wall thickening. The common bile duct is distended up to 1 cm. In the setting of a positive sonographic Valle's sign this is concerning for acute cholecystitis. Clinical correlation recommended.
--- NOTE | 2018-10-25 08:49 | Anesthesiology Consultation ---
Date of Service October 25, 2018 Assessment & Plan Chart Review Chart Review: Acceptable Risk for Surgery and Patient NOT seen in Pre Admission Testing Consults Requested none ASA ASA2 Proposed Anesthesia Anesthesia Type: General Risk / Benefits Reviewed With: PT / POA / Parent / Guardian, Accepts Plan and Informed Consent Obtained History Surgery Operation Date: 10/25/18 11:00 Proposed Procedures p Laparoscopic Cholecystectomy with Cholangiogram - Rubin Vasquez MD Height/Weight Height: 1.63 m Weight: 101.1 kg Allergies Allergy/AdvReac Type Severity Reaction Status Date / Time No Known Allergies Allergy Unknown Verified 10/24/18 22:35 Medications Home Medications Medication Instructions Recorded Confirmed Last Taken amiloride-hydrochlorothiazide 1 tab PO QAM 03/03/18 10/24/18 10/24/18 potassium chloride 10 meq PO TID 03/03/18 10/24/18 10/24/18 15:00 simvastatin 20 mg PO HS 03/03/18 10/24/18 10/23/18 escitalopram oxalate 10 mg PO QAM 03/15/18 10/24/18 10/24/18 ergocalciferol (vitamin D2) 50,000 unit PO WK 10/24/18 10/24/18 Unknown [Vitamin D2] Active Medications Generic Name Dose Route Start Last Admin Trade Name Freq PRN Reason Stop Dose Admin Amiloride/HCTZ 1 tab 10/25/18 09:00 10/25/18 08:06 Moduretic 5/50mg PO 11/24/18 08:59 1 tab QAM MARY Administration Escitalopram Oxalate 10 mg 10/25/18 09:00 10/25/18 08:06 Lexapro PO 11/24/18 08:59 10 mg QAM MARY Administration Hydralazine HCl 10 mg 10/25/18 02:52 10/25/18 07:54 Hydralazine Hcl IV 11/24/18 02:51 10 mg Q4 PRN Administration Hypertension Ampicillin Sodium/Sulbactam 104 mls @ 200 mls/hr 10/25/18 03:00 10/25/18 08:37 Sodium 1,500 mg/ Sodium IV 10/26/18 02:59 Infused Chloride Q6H MARY Infusion Lactated Ringer's 1,000 mls @ 100 mls/hr 10/25/18 02:05 10/25/18 03:03 Lr IV 11/24/18 02:04 100 mls/hr .Q10H MARY Administration Morphine Sulfate 4 mg 10/25/18 02:05 10/25/18 07:55 Morphine Sulfate IV 11/08/18 02:04 4 mg Q3H PRN Administration SEVERE Pain (Scale 7,8,9,10) Oxycodone/Acetaminophen 2 tab 10/25/18 02:05 10/25/18 09:30 Percocet 5mg/325mg PO 11/08/18 02:04 2 tab Q4H PRN Administration SEVERE Pain (Scale 7,8,9,10) Potassium Chloride 10 meq 10/25/18 09:00 10/25/18 08:06 Klor-Con M10 PO 11/24/18 08:59 10 meq TID MARY Administration NPO Date Last Intake of Fluids: 10/25/18 Time Last Intake of Fluids: 00:00 Last Intake of Fluids Comment: pt states prior to midnight; arrived to floor at 0200. Date Last Intake of Solids: 10/25/18 Time Last Intake of Solids: 17:00 Past Medical History Medical History Abdominal pain, acute, right upper quadrant (Acute) Cholelithiasis (Acute) Common bile duct dilatation (Acute) GERD (gastroesophageal reflux disease) Controlled with medication Anxiety Depression HTN (hypertension) History of cellulitis LEFT LEG Kidney stones Obesity Seizure HX A CHILD-LAST AGE 11 YRS-NO MEDS SINCE CHILDHOOD Exercise / Class Metabolic Activity II 4-5 Yardwork/Stairs/Walk up hill Past Family History Family History Father Prostate cancer Past Surgical History Surgical History S/P colonoscopic polypectomy (Acute) H/O lithotripsy X 3 Hx of shoulder surgery LEFT S/P cystoscopy with ureteral stent placement Past Anesthesia History No Hx of Anesthesia Complications and No Family Hx of Anesthesia Complications History of PONV No Hx of PONV and No Hx of Motion Sickness Social History Smoking Status: Never smoker tobacco type: cigarettes Do You Dip or Chew Tobacco: No Hx Alcohol Use: Yes Alcohol type: beer alcohol intake frequency: a few times a week Hx Substance Use: No Review of Systems Respiratory: no dyspnea Cardiovascular: no chest pain and no dyspnea on exertion Gastrointestinal: + nausea; no vomiting (Vomiting last night) Physical Exam Vital Signs Last Vital Signs Temp 37.7 C H 10/25/18 10:10 Pulse 128 H 10/25/18 10:10 Resp 20 10/25/18 10:10 BP 150/85 H 10/25/18 10:10 Pulse Ox 92 10/25/18 07:35 Constitutional + obese ENMT Mouth: no TMJ abnormality and no TMJ clicking Thyromental Distance: > or= 3.5 Finger Breadths Mallampati Class: III Neck normal visual inspection; neck extension not limited Respiratory Auscultation: lungs clear to auscultation bilaterally Cardiovascular Rate/Rhythm: regular rate and regular rhythm Psychiatric Orientation: alert and oriented x 3 Testing Laboratory Results Laboratory Tests 08/30/18 10/24/18 10/24/18 14:05 22:40 22:40 WBC 10.09 Hgb 16.8 Hct 47.8 Plt Count 203 PT 10.0 INR 1.0 APTT 25.1 Sodium Potassium Chloride Carbon Dioxide BUN Creatinine Glucose TSH 1.520 10/24/18 22:40 WBC Hgb Hct Plt Count PT INR APTT Sodium 140 Potassium 3.4 L Chloride 105 Carbon Dioxide 29 BUN 15 Creatinine 1.21 Glucose 123 H TSH Electrocardiogram Date: 10/24/18 Findings: + SB @ (56bpm) IRBBB When compared with ECG of 03/15/2018 no significant change was found Chest X-Ray Date: 10/24/18 Findings: + NAD
[2018-10-25] MEDS ORDERED: fentaNYL citrate 100 MCG/2 ML VIAL ONE (09:54)
[2018-10-25] MEDS ORDERED: PROPOFOL IV EMULSION 10 MG/ML 20 ML VIAL IV ONE (09:54)
[2018-10-25] MEDS ORDERED: ROCURONIUM BROMIDE 10 MG/ML 5 ML VIAL ONE (09:54)
[2018-10-25] MEDS ORDERED: DEXAMETHASONE SOD INJ 4 MG/ML VIAL ONE (09:54)
[2018-10-25] MEDS ORDERED: MIDAZOLAM HCL 1 MG/ML 2ML VIAL ONE (09:54)
[2018-10-25] MEDS ORDERED: ONDANSETRON INJ 2 MG/ML 2 ML VIAL ONE (09:54)
[2018-10-25] MEDS ORDERED: LIDOCAINE HCL 2% 2 ML VIAL/AMP(20MG/ML) INFIL ONE (09:54)
[2018-10-25] MEDS ORDERED: BUPIVACAINE 0.5 % 5 MG/1 ML MPF 30ML VIAL ONE (10:01)
[2018-10-25] MEDS ORDERED: CONRAY 60% 50 ML VIAL ONE (10:01)
[2018-10-25] MEDS ORDERED: HEPARIN (PORCINE) 1000 UNIT/ML 10 ML (CATH LAB USE ONLY) ONE (10:01)
[2018-10-25] MEDS ORDERED: CEFAZOLIN 250 MG/ML 1 GM VIAL ONE (10:02)
[2018-10-25] MEDS ORDERED: LABETALOL HCL IV 5 MG/ML 20ML IV PRN (10:24)
[2018-10-25] MEDS ORDERED: PHENYLEPHRINE 100MCG/ML 5ML SYR IV PRN (10:24)
[2018-10-25] MEDS ORDERED: ATROPINE SULFATE 0.1 MG/ML 10ML SYR IV PRN (10:24)
[2018-10-25] MEDS ORDERED: ACETAMINOPHEN 1000 MG/100 ML IV IV ONE (10:24)
[2018-10-25] MEDS ORDERED: fentaNYL citrate 100 MCG/2 ML VIAL IV PRN (10:24)
[2018-10-25] MEDS ORDERED: HYDROmorphone INJ 1 MG/ML SYRINGE IV PRN (10:24)
[2018-10-25] MEDS ORDERED: ePHEDrine sulfate 50 MG/ML AMP IV PRN (10:24)
[2018-10-25] MEDS ORDERED: PROMETHAZINE HCL 12.5 MG in SODIUM CHLORIDE 0.9% 50 ML IV PRN (10:24)
[2018-10-25] MEDS ORDERED: HYDROmorphone INJ 2 MG/ML SYR/VIAL ONE (11:15)
--- NOTE | 2018-10-25 11:36 | Fluoroscopy Report ---
INTRAOPERATIVE CHOLANGIOGRAM HISTORY: Post cholecystectomy. FLUOROSCOPY TIME: 29 seconds. 6 fluoroscopic spot images of the right upper quadrant. FINDINGS: Fluoroscopy was provided for an intraoperative cholangiogram status post cholecystectomy. C ontrast was injected through the cystic duct remnant. The common bile duct is normal in course and ca liber. There are no filling defects seen within the common bile duct to suggest a retained stone. Co ntrast extends into the small bowel. There is no intrahepatic bile duct dilatation. IMPRESSION: Fluoroscopy provided for an intraoperative cholangiogram status post cholecystectomy. No filling defects within the common bile duct. Electronically signed by: Sundeep Rao M.D. 10/25/2018 11:35 AM
[2018-10-25] MEDS ORDERED: GLYCOPYRROLATE 0.2 MG/ML VIAL ONE (11:46)
[2018-10-25] MEDS ORDERED: NEOSTIGMINE METHYLSULFATE 5 MG/5 ML SYR ONE (11:46)
[2018-10-25] MEDS ORDERED: LABETALOL HCL IV 5 MG/ML 20ML IV ONE (11:46)
--- NOTE | 2018-10-25 11:55 | Post Operative Brief Note ---
Immediate Post Op Note v1 Date of Surgery October 25, 2018 Pre & Post Diagnosis Operation Date: 10/25/18 11:00 Pre-Op Diagnosis: Acute cholecytitis. Post-Op Diagnosis: Acute cholecytitis. Procedure Operation Date: 10/25/18 11:00 Actual Procedures p Laparoscopic Cholecystectomy with Cholangiogram - Rubin Vasquez MD Surgeon Rubin Vasquez MD Industrial Spray Painter Shi Spaulding PA-C Estimated Blood Loss 7 Findings Consistent with Post-Op Diagnosis Specimens Gallbladder and contents Anesthesia Type General Complications none
--- NOTE | 2018-10-25 12:26 | Hospitalist Consultation ---
Date of Consultation October 25, 2018 Assessment & Plan (1) Cholelithiasis: Patient resented with acute abdominal pain. Surgery consulted after patient was found to have cholelithiasis Patient is being prepped for the operating theater by Dr. Vasquez Continue management per surgery (2) Common bile duct dilatation: Secondary to cholelithiasis Patient plan for cholecystectomy with Dr. Vasquez later today Follow expectantly (3) Hypertension: Patient denies previous awareness of any hypertension however he is on outpatient antihypertensive Continue amiloride/HCTZ at home dose Patient's blood pressure most likely elevated secondary to acute pain from cholelithiasis Throughout the morning the patient's blood pressure has improved and was 145/84 at the time of my exam No further intervention required at this time Continue to follow vital signs per protocol Call as needed (4) Dyslipidemia: Continue simvastatin Continue managed outpatient (5) Depression: No current issues Continue Escitalopram (6) DVT prophylaxis: No chemical prophylaxis secondary to cholecystectomy scheduled later today Consider ASIM hose and SCDs Begin ambulation as soon as possible after surgery Please refer to Dr. Burleson's addendum for further recommendations, We will sign off at this time and follow as needed Supervising Physician Co-Signing Physician Notes Attending Attestation: Pt seen/examined, chart reviewed, care plan d/w PA Aguilar Mattson. I agree w/ the landers components of his consult documentation. 53yo male presenting with acute cholecystitis. s/p lap madonna today by Dr Vasquez. He was hypertensive and tachycardic perioperatively today. I saw the patient several hours post-op and he reported significant pain prior to the surgery and immediately after surgery. He mentions he takes the HCTZ for h/o hypercalcemia and calcium-based kidney stones. He also c/o mild left knee pain x 24 hours. PMH, PSH, allergies, meds, sochx, famhx, ros - reviewed vitals - tachy, bps improved gen - NAD, a/o x 3 heart - tachy, s1, s2, no murmur lungs - CTA b/l abd - soft, mildly distended, bs+, incisions clean, no HSM ext - no edema, pulses 2+ b/l musculo - left knee with mild warmth and synovitis/effusion; right knee normal A/P: 1. acute cholecystitis s/p lap madonna today. 2. dilated CBD on imaging - s/p intraop cholangiogram with NO filling defects 3. tachycardia - EKG obtained - my reading - borderline sinus tach, IRBBB, no ST changes; tachycardia likely due to pain, anxiety 4. left knee synovitis - suspect gout due to HCTZ use; check uric acid level am will follow Ari Burleson MD History of Present Illness Reason for Consultation: Hypertension Requesting Physician: Dr. Vasquez, surgery Attending Physician: Niru Deleon MD History of Present Illness Attending: Dr. Burleson This is a 53-year-old male who awoke this morning with acute abdominal pain. He reports he had previous abdominal pain for the last several days but thought it would go away or may have been something he ate. The pain persisted and the patient reported to the ED for evaluation. He was found to have a gallstone trapped in the biliary duct and is being prepped for surgery. Medicine team was called due to hypertension. Patient was seen and was in pain in the right upper quadrant. She has been receiving morphine sulfate as ordered by Dr. Niru Deleon. Blood pressure beginning to trend down and at the time of my examination was 145/84. Patient denies any nausea vomiting. He has no other previous recent illness. He denies regular ethanol use. He has no tobacco abuse history. He denies any diarrhea. He has had some nausea but no vomiting. He is reporting some sharp right upper quadrant pain with deep inspiration but no other pleuritic pain. He has no hypoxia. He has no shortness of breath. He has no other chest pain. Patient denies any prior history of heart disease or hypertension. However, he is on amiloride/HCTZ as an outpatient but is not aware that is for hypertension. Patient has no prior history of heart disease. He has no other acute complaints at this time other than his abdominal pain. Allergies Allergy/AdvReac Type Severity Reaction Status Date / Time No Known Allergies Allergy Unknown Verified 10/24/18 22:35 Home Medications Home Medications Medication Instructions Recorded Confirmed Type amiloride-hydrochlorothiazide 1 tab PO QAM 03/03/18 10/24/18 History potassium chloride 10 meq PO TID 03/03/18 10/24/18 History simvastatin 20 mg PO HS 03/03/18 10/24/18 History escitalopram oxalate 10 mg PO QAM 03/15/18 10/24/18 History ergocalciferol (vitamin D2) 50,000 unit PO WK 10/24/18 10/24/18 History [Vitamin D2] Patient History Medical History Abdominal pain, acute, right upper quadrant (Acute) Cholelithiasis (Acute) Common bile duct dilatation (Acute) GERD (gastroesophageal reflux disease) Controlled with medication Anxiety Depression HTN (hypertension) History of cellulitis LEFT LEG Kidney stones Obesity Seizure HX A CHILD-LAST AGE 11 YRS-NO MEDS SINCE CHILDHOOD Surgical History S/P colonoscopic polypectomy (Acute) H/O lithotripsy X 3 Hx of shoulder surgery LEFT S/P cystoscopy with ureteral stent placement Family History Father Prostate cancer Social History Preferred Language: Greek 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 Beliefs That Will Affect Care: None Current Living Situation: Family Feels Safe at Home: Yes Safety Concerns: Feels Safe At This Time Smoking Status: Never smoker Tobacco Type: cigarettes Do You Dip or Chew Tobacco: No Second Hand Exposure: No Hx Alcohol Use: Yes Alcohol type: beer Hx Substance Use: No Review of Systems Review of Systems: All systems reviewed & are unremarkable except as noted in HPI & below Physical Exam Physical Exam: GENERAL : No acute distress EYES: No icterus, gaze conjugate NOSE: No evidence of epistaxis MOUTH: No lesions or candidiasis NECK: Supple LUNGS: CTA B/L, no wheezes, rales or rhonchi HEART: Regular, tachycardic. No appreciation of ectopy ABDOMEN: Soft, ND, BS Present. Pain to light palpation of the right upper quadrant. Bowel sounds are quiet. EXTREMITIES: No LE edema, pedal pulses intact NEURO: A&OX3 Results & Data Vital Signs (Past 12 Hours) Vital Signs Temp Pulse Pulse Pulse Resp BP BP 10/25/18 10:10 37.7 C H 128 H 20 150/85 H 10/25/18 09:15 155/90 H 10/25/18 08:10 145/84 H 10/25/18 07:35 37.1 C 104 H 20 182/102 H 10/25/18 06:07 166/98 H 10/25/18 03:59 173/103 H 10/25/18 02:09 36.5 C 49 L 18 197/108 H 10/25/18 01:53 57 L 18 196/106 H 10/25/18 00:52 Pulse Ox 10/25/18 10:10 10/25/18 09:15 10/25/18 08:10 10/25/18 07:35 92 10/25/18 06:07 10/25/18 03:59 10/25/18 02:09 96 10/25/18 01:53 97 10/25/18 00:52 87 L Laboratory Results 10/24/18 22:40 10/24/18 22:40 Diagnostic Findings INTRAOPERATIVE CHOLANGIOGRAM HISTORY: Post cholecystectomy. FLUOROSCOPY TIME: 29 seconds. 6 fluoroscopic spot images of the right upper quadrant. FINDINGS: Fluoroscopy was provided for an intraoperative cholangiogram status p ost cholecystectomy. Contrast was injected through the cystic duct remnant. The common bile duct is normal in course and caliber. There are no filling defects seen within the common bile duct to suggest a retained stone. Contrast extends into the small bowel. There is no intrahepatic bile duct dilatation. IMPRESSION: Fluoroscopy provided for an intraoperative cholangiogram status post cholecystectomy. No filling defects within the common bile duct. Electronically signed by: Sundeep Rao M.D. 10/25/2018 11:35 AM ABDOMINAL ULTRASOUND, RIGHT UPPER QUADRANT HISTORY: RUQ and epigastric pain/tenderness. COMPARISON: Abdomen and pelvis CT 03/15/2018. FINDINGS: Pancreas: Obscured by overlying bowel gas. Liver: The liver is echogenic consistent with fatty change. A 2.3 cm cyst within the left hepatic lobe. Gallbladder: No gallbladder wall thickening. A few gallstones with the largest in the neck measuring 2.2 cm. The technologist reported positive sonographic Valle's sign. CBD: Measuring up to 1 cm. Right kidney: No hydronephrosis. A 3.7 cm cyst. IMPRESSION: Cholelithiasis without significant gallbladder wall thickening. The common bile duct is distended up to 1 cm. In the setting of a positive sonographic Valle's sign this is concerning for acute cholecystitis. Clinical correlation recommended. Electronically signed by: Sundeep Rao M.D. 10/25/2018 7:18 AM XR chest 1V portable HISTORY: 53 years-old Male epigastric pain acute epigastric abdominal pain COMPARISON: Chest radiograph 03/15/2018 TECHNIQUE: Portable AP view of the chest FINDINGS: Cardiomediastinal and hilar silhouettes are within normal limits. No pneumoth orax, pleural effusion, focal airspace consolidation or overt pulmonary edema. Healed remote distal left clavicular fracture with postoperative changes or post traumatic osteolysis of the distal left clavicle. IMPRESSION: No acute process. The above report was generated using voice recognition software. It may contain grammatical, syntax or spelling errors. Electronically signed by: Braulio Castillo M.D. 10/25/2018 6:22 AM (1) Cholelithiasis Biliary obstruction: without biliary obstruction Cholecystitis presence: without cholecystitis Cholelithiasis location: gallbladder Qualified Code(s): K80.20 - Calculus of gallbladder without cholecystitis without obstruction
[2018-10-25] MEDS ORDERED: SUGAMMADEX SODIUM 200 MG/2 ML VIAL IV ONE (12:27)
--- NOTE | 2018-10-25 13:09 | Anesthesiology Progress Note ---
Date of Service October 25, 2018 Anesthesia Post Procedure Vital Signs Vital Signs: Temp Pulse Pulse Pulse Pulse Resp BP 10/25/18 13:06 36.9 C 108 H 18 10/25/18 12:56 108 H 18 10/25/18 12:45 112 H 18 10/25/18 12:35 36.7 C 111 H 16 10/25/18 10:10 37.7 C H 128 H 20 10/25/18 09:15 10/25/18 08:10 10/25/18 07:35 37.1 C 104 H 20 10/25/18 06:07 10/25/18 03:59 10/25/18 02:09 36.5 C 49 L 18 10/25/18 01:53 57 L 18 196/106 H 10/25/18 00:52 10/25/18 00:06 56 L 18 10/24/18 23:31 56 L 17 10/24/18 22:19 36.4 C L 58 L 20 199/108 H BP Pulse Ox 10/25/18 13:06 114/67 94 10/25/18 12:56 124/83 94 10/25/18 12:45 116/78 94 10/25/18 12:35 116/78 94 10/25/18 10:10 150/85 H 10/25/18 09:15 155/90 H 10/25/18 08:10 145/84 H 10/25/18 07:35 182/102 H 92 10/25/18 06:07 166/98 H 10/25/18 03:59 173/103 H 10/25/18 02:09 197/108 H 96 10/25/18 01:53 97 10/25/18 00:52 87 L 10/25/18 00:06 194/100 H 95 10/24/18 23:31 97 10/24/18 22:19 97 Pain Intensity Bilateral Upper Abdomen: Pain Intensity: 10 Transfer of Care Handoff Completed per policy Notes Mental Status: alert / awake / arousable Patient Amnestic to Procedure: Yes Nausea / Vomiting: adequately controlled Pain: adequately controlled Airway Patency, RR, SpO2: stable & adequate BP & HR: stable & adequate Hydration State: stable & adequate Anesthetic Complications: no major complications apparent Notes: Awake, doing well, no complaints, VSS. Will require 2L via NC to keep O2>94 %.
[2018-10-25] MEDS ORDERED: MoRPHine SULFATE 4 MG/ML 1 ML CARP\\VIAL IV PRN (13:31)
[2018-10-25] MEDS ORDERED: SIMVASTATIN 20 MG TAB PO SCH (21:00)
--- NOTE | 2018-10-25 23:11 | Operative Report ---
DATE OF OPERATION: 10/25/2018 PREOPERATIVE DIAGNOSIS: Acute cholecystitis. POSTOPERATIVE DIAGNOSIS: Acute cholecystitis. PROCEDURE: Laparoscopic cholecystectomy with intraoperative cholangiogram. SURGEON: Rubin Vasquez MD [employer] REPAIRER: Shi Spaulding PA-C FINDINGS: The gallbladder was dilated. There was a very large stone within the lumen. The wall of the gallbladder was thin. There was no adhesion to the gallbladder. There was a lot of edema in the tissues. The cystic duct was not dilated. Intraoperative cholangiogram was performed. The radicles filled and there was free flow into the duodenum. There were no filling defects. The liver was of normal size and contour. The visible bowel appeared normal. TECHNIQUE: The patient was given a general anesthetic. The area was prepped and draped in usual sterile fashion. A transverse incision was made below the umbilicus and carried down through the subcutaneous tissue to the fascia which was grasped with 2 Malachi clamps and incised between. The peritoneum was identified, incised and the introducer was placed bluntly. The abdomen was then insufflated to a pressure of 15 mmHg with carbon dioxide. The upper midline, midclavicular and anterior axillary introducers were placed under direct vision through small skin incisions. I attempted to place traction on the gallbladder, could not grasp it. The drainage needle was passed under direct vision and placed into the fundus of the gallbladder and dark bile was removed. The gallbladder was then able to be grasped and elevated. Beginning over the infundibulum, the peritoneum was opened. There was a lot of fatty tissue around it. There was a lot of edema within the tissue planes, which helped to aid in dissection. All of the fatty and connective tissue was peeled down towards the common bile duct and the infundibulum was dissected away from the liver on the lateral side allowing for better mobility. I then was able to open the triangle of Calot and dissect the gallbladder away from the liver on the medial side as well. Further dissection of connective tissue exposed the anterior surface of the cystic duct. This was freed laterally and medially as well. There were some thickened lymphatics on the medial side that were also taken down, which allowed me to expose the posterior wall which then allowed me to complete the dissection of the infundibulum away and create the critical window. The gallbladder cystic duct junction was confidently identified. One clip was placed on the duct right at the junction with the gallbladder. The cystic duct was partially transected and the cholangiocatheter was passed with ease. The balloon was inflated and it was irrigated with saline and there was no leak. Cholangiogram was performed with findings as above. The cholangiocatheter was removed and 2 clips were placed on the proximal cystic duct and transection was completed. Further dissection was carried out posterior to that. There were 2 branches of the artery seen extending to the gallbladder. These were doubly clamped proximally once near the gallbladder and divided. The gallbladder was then peeled off the liver bed using electrocautery. The gallbladder was placed into an Endobag and brought out through the upper midline incision. Then introducer was replaced. The liver edge was elevated. The subdiaphragmatic and subhepatic spaces were irrigated and irrigation was removed. The gallbladder bed of the liver was inspected and there was no bleeding. The previously placed clips were intact. Subdiaphragmatic and subhepatic space were again irrigated and the irrigation was removed and that was repeated until the return was clear. The gallbladder bed of the liver was again inspected and there was no bleeding. The liver was allowed to fall back into its anatomic position and the gas was allowed to escape. The introducers were removed. The fascia of the umbilical and upper midline introducer sites was closed with interrupted 0 Vicryl and skin of all the incisions was closed with 4-0 Monocryl in either an interrupted or running subcuticular fashion. The skin was anesthetized with 0.5% Marcaine. The skin was cleansed, dried, benzoin placed, Steri-Strips applied. Estimated blood loss was 7 mL. Sponge, needle and instrument counts were correct prior to closure. The patient tolerated the surgical procedure without complication and was transferred to Recovery. I attest to the content of the Intraoperative Record and any orders documented therein. Any exception s are noted below.
[2018-10-26] MEDS: LACTATED RINGER'S 1,000 ML IV SCH ×2 (00:20→08:23)
[2018-10-26 06:02] LABS: Hematocrit (blood only) 42.2 % (42-52); Hemoglobin 14.4 g/dL (14.0-18.0); Mean Corpuscular Hgb Conc 34.1 g/dL (32-36); Mean Corpuscular Volume 88.5 fL (80-100); Platelet Count 180 K/uL (130-400); RDW Coefficient of Variation 13.2 % (11.5-14.5); RDW Standard Deviation 42.7 fL (36.4-46.3); Red Blood Count 4.77 M/uL (4.7-6.1); White Blood Count 16.22 K/uL (4.8-10.8)
[2018-10-26 06:37] LABS: Albumin Level 3.2 gm/dl (3.4-5.0); BUN Creatinine Ratio 12.7 (10-20); Bilirubin Direct 0.1 mg/dl (0-0.2); Calcium 8.9 mg/dl (8.5-10.1); Creatinine Clr Calc Pharmacy 85.2 ml/min; Est GFR (Non-African American) 77.6; Potassium 3.5 mmol/L (3.5-5.1); Uric Acid 5.9 mg/dl (2.6-7.2)
[2018-10-26 06:39] LABS: Bilirubin,Total 0.5 mg/dl (0.2-1); Total Protein 7.3 gm/dl (6.4-8.2)
[2018-10-26] MEDS ORDERED: ACETAMINOPHEN 325 MG TAB PO PRN (07:42)
[2018-10-26] MEDS: POTASSIUM CHLORIDE 10 MEQ TABCR PO SCH (08:10)
[2018-10-26] MEDS: AMILORIDE/HCTZ 5/50MG TAB PO SCH (08:10)
[2018-10-26] MEDS: ESCITALOPRAM OXALATE 10 MG TAB PO SCH (08:10)
[2018-10-26] MEDS ORDERED: AMOXICILLIN/CLAVULANATE 875 MG TAB PO SCH ×2 (09:00→21:00)
--- NOTE | 2018-10-26 12:16 | Anesthesiology Progress Note ---
Date of Service October 26, 2018 Anesthesia Post Procedure Vital Signs Vital Signs: Temp Pulse Pulse Pulse Resp BP BP 10/26/18 08:18 86 10/26/18 03:31 36.6 C 89 14 117/67 10/25/18 23:49 36.8 C 94 H 14 114/65 10/25/18 16:30 36.8 C 108 H 18 117/67 10/25/18 15:29 10/25/18 15:25 37.0 C 101 H 16 127/71 10/25/18 14:34 36.7 C 111 H 16 121/75 10/25/18 14:07 36.8 C 114 H 16 103/72 10/25/18 14:00 37.2 C 110 H 18 108/75 10/25/18 13:19 36.9 C 106 H 18 119/86 10/25/18 13:06 36.9 C 108 H 18 114/67 10/25/18 12:56 108 H 18 124/83 10/25/18 12:45 112 H 18 116/78 10/25/18 12:35 36.7 C 111 H 16 116/78 Pulse Ox Pulse Ox 10/26/18 08:18 94 10/26/18 03:31 92 10/25/18 23:49 92 10/25/18 16:30 95 10/25/18 15:29 93 10/25/18 15:25 93 10/25/18 14:34 96 10/25/18 14:07 96 10/25/18 14:00 94 10/25/18 13:19 95 10/25/18 13:06 94 10/25/18 12:56 94 10/25/18 12:45 94 10/25/18 12:35 94 Pain Intensity Bilateral Upper Abdomen: Pain Intensity: 1 Notes Mental Status: alert / awake / arousable and participated in evaluation Patient Amnestic to Procedure: Yes Nausea / Vomiting: adequately controlled Pain: adequately controlled Airway Patency, RR, SpO2: stable & adequate BP & HR: stable & adequate Hydration State: stable & adequate Anesthetic Complications: no major complications apparent
--- NOTE | 2018-10-26 13:27 | Surgery Progress Note ---
Date of Service October 26, 2018 Assessment & Plan (1) Abdominal pain, acute, right upper quadrant: Acute cholecystitis POD # 1 s/p lap madonna vitals stable, htn resolved (likely from pain preoperatively) no n/v, tolerating diet - post op pain minimal Plan: Discharge home today discharge instructions reviewed f/u surgical office in 2 weeks Rx for Percocet prn pain Rx for Augmentin BID for [address] Vasquez has seen and examined patient, agrees with above Subjective feeling great, preoperative pain resolved immediately following surgery no n/v tolerated regular diet ambulated hallway no chest pain /sob Physical Exam Constitutional: WD/WN, vitals as above no acute distress and not ill appearing Gastrointestinal (Abdomen): Inspection/Auscultation: abdomen not distended Percussion/Palpation: abdomen soft; abdomen nontender, no guarding and abdomen not rigid Skin: no rashes, warm and dry + incision (covered with steri strips, clean and dry) Psychiatric: A+Ox3, euthymic affect Results & Data Vital Signs (Past 12 Hours) Vital Signs Temp Pulse Pulse Resp BP Pulse Ox 10/26/18 08:18 86 94 10/26/18 03:31 36.6 C 89 14 117/67 92
--- NOTE | 2018-10-26 20:30 | Hospitalist Progress Note ---
Date of Service October 26, 2018 Assessment & Plan (1) Cholelithiasis: with acute cholecystitis POD #1 s/p lap madonna intra-op cholangiogram neg for CBD stone management per gen surg doing well from surg standpoint (2) Common bile duct dilatation: see discussion above (3) Hypertension: cont amiloride-HCTZ (4) Dyslipidemia: statin agent (5) Depression: cont lexapro (6) Left knee pain: suspect acute gout uric acid 5.9 suspect HCTZ use could be driving the gout has had the knee pain before ideally HCTZ would be stopped but he uses it for kidney stone prevention I asked him to f/u with PCP for this foods to avoid discussed with patient (7) Tachycardia: likely was due to pain resolved EKG yesterday wnl; no ischemic changes, etc from medical standpoint can d/c home today Subjective patient feeling well today. passing flatus. tachycardia resolved. left knee feels better. no cp or sob. eating w/o difficulty. Review of Systems Constitutional: no fever and no chills Respiratory: no cough Cardiovascular: no chest pain Gastrointestinal: + abdominal pain Physical Exam Constitutional: well developed and well nourished; no acute distress Respiratory: normal respiratory effort, lungs clear to auscultation Cardiovascular: RRR, no murmur, no edema Heart Sounds: normal S1 and normal S2 Vessels: posterior tibial pulses present and dorsalis pedis pulses present; no JVD Gastrointestinal (Abdomen): Inspection/Auscultation: + abdomen distended (mild) and normal bowel sounds Percussion/Palpation: abdomen nontender, no guarding and no hepatosplenomegaly Musculoskeletal: left knee - minimal effusion, erythema/warmth resolving Skin: incisions clean on abd wall Psychiatric: A+Ox3, euthymic affect Results & Data Vital Signs (Past 12 Hours) Vital Signs Temp Pulse Pulse Pulse Resp BP BP 10/26/18 14:18 36.6 C 114 H 89 86 14 117/67 117/67 Pulse Ox 10/26/18 14:18 94 Laboratory Results Laboratory Results - last 24 hr 10/26/18 10/26/18 05:48 05:48 WBC 16.22 H RBC 4.77 Hgb 14.4 Hct 42.2 MCV 88.5 MCH 30.2 MCHC 34.1 RDW Std Deviation 42.7 RDW Coeff of Beto 13.2 Plt Count 180 MPV 10.0 Sodium 137 Potassium 3.5 Chloride 100 Carbon Dioxide 31 Anion Gap 6.0 BUN 14 Creatinine 1.09 Est Cr Clr Drug Dosing 85.2 Est GFR ( Amer) 90.0 Est GFR (Non-Af Amer) 77.6 BUN/Creatinine Ratio 12.7 Glucose 128 H Uric Acid 5.9 Calcium 8.9 Magnesium 2.0 Total Bilirubin 0.5 Direct Bilirubin 0.1 AST 44 H ALT 61 Alkaline Phosphatase 58 Total Protein 7.3 Albumin 3.2 L (1) Cholelithiasis Biliary obstruction: without biliary obstruction Cholecystitis presence: without cholecystitis Cholelithiasis location: gallbladder Qualified Code(s): K80.20 - Calculus of gallbladder without cholecystitis without obstruction (2) Hypertension Hypertension type: essential hypertension Qualified Code(s): I10 - Essential (primary) hypertension (3) Depression Depression Type: other depression Qualified Code(s): F32.89 - Other specified depressive episodes (4) Left knee pain Chronicity: acute Qualified Code(s): M25.562 - Pain in left knee
--- NOTE | 2018-10-27 12:31 | Discharge Summary ---
Date of Service October 27, 2018 Admission HPI Per Admitting Provider This is a 53-year-old male who presented to the emergency room with a complaint of right upper quadrant pain. It began last night after having eaten hoagie at 5:00. The pain is located in the right subcostal region and extends up into the lower right thorax area. If he takes a deep breath it is exacerbated. Pain was also exacerbated during the ultrasound. The pain was sharp. He is received morphine for pain. That has decreased the pain to more of a dull ache but it is still fairly intense. He has had pain similar to this in the past however it resolved spontaneously. This was associated with some nausea. He has not had a change in his bowel habits beyond what happened after a colonoscopy. He has occasional hematochezia following his polypectomy. There is no melena. He has no shortness of breath. His blood pressure since admission has been elevated. He has a history of hypertension. Principal Diagnosis acute cholecystitis Discharge Data Allergies Allergy/AdvReac Type Severity Reaction Status Date / Time No Known Allergies Allergy Unknown Verified 10/24/18 22:35 Consultations 10/25/18 00:34 ED Decision to Admit Stat 10/25/18 08:38 Consult Hospitalist Routine Procedures Performed Operation Date: 10/25/18 11:00 Actual Procedures p Laparoscopic Cholecystectomy with Cholangiogram - Rubin Vasquez MD Ordered Studies 10/24/18 22:59 US abdomen limited Urgent 10/25/18 10:45 [place] cholangiogram OR Routine Hospital Course (1) Abdominal pain, acute, right upper quadrant: Patient admitted to medical/surgical floor from the emergency department. Started on IV Unasyn, IV fluids, IV Morphine prn pain, IV Zofran prn nausea, IV Hydralazine as needed for HTN, kept NPO, activity as tolerated. Patient was evaluated in the morning and was found to be hypertensive with systolic bp in the 190's despite IV Hydralazine administration. Hospitalist was consulted to evaluate patient preoperatively given hypertension. He was having no chest pain, shortness of breath, headache or any other symptoms and likely was secondary to pain. He was cleared by medicine for surgery and was scheduled for laparoscopic cholecystectomy with Dr. Vasquez. Patient was taken to operating room and found to have acute cholecystitis with some early gangrene changes. Patient tolerated procedure well without any complications. Patient was transferred to recovery and then back to medical/surgical floor for post op care. Diet was advanced to regular diet and he was started on PO Percocet as needed for pain. IV Unasyn was continued. POD 3 1 vitals stable, afebrile, HTN resolved. POst op pain minimal and controlled without narcotics. Tolerating diet, no n/v. Patient was discharged home on POD # 1 in stable condition with PO Augmentin for 7 days. Total Time Total Time Spent Total Time Spent (In Minutes): 15 minutes Total Time Includes: Examination of the Patient, Discharge Planning and Medication Reconciliation Discharge Plan Discharge Items Patient Disposition: Home - Self-Care Reason For Visit: acute cholecytitis Discharge Diagnosis: Same Discharge Goals: Decrease discomfort Activity: Per 'Additional Instructions' section Non-emergency contact: Surgeon Call non-emergency contact if: your symptoms worsen, your pain is not controlled, your pain is concerning for you, you have a fever, your temperature is above 101 and your wound has increased redness Follow-up/Referrals: Maynor Engle III, MD [Primary Care Provider] - Diet: Regular Addtl Provider Instructions: Post-Surgical ~Discharge Instructions Activity Recommendations: - lifting limitation: (10 pounds for 2 weeks), - exercise/sex/sports limit: (nonstrenuous for 2 weeks), - driving or machine use limit: (none for 1 week), - Shower/bathe limit: (may shower beginning tomorrow) Diet: - Resume previous diet SPECIAL CARE INSTRUCTIONS: - May shower in 24 hours. Let water run over area and pat dry. - Leave steri strips on for one week. - Call the surgeon's office with any questions or concerns - - (ex. temperature higher than 101 degrees F, excessive bleeding or pain). MEDICATIONS: - Resume previous medications unless instructed otherwise by your surgeon. - Ibuprofen 600 mg every 6 hours with food - Percocet 1 every 4 hours, as needed for pain FOLLOW UP VISIT: - If not already scheduled, please call the office to schedule a two week fo llow-up appointment. Office number Prescriptions: New oxycodone-acetaminophen 5-325 mg tablet 1 tab PO Q4H PRN (Reason: pain) Qty: 18 RF: 0 amoxicillin-pot clavulanate 875-125 mg tablet 1 tab PO BID Qty: 14 RF: 0 Continued ergocalciferol (vitamin D2) [Vitamin D2] 50,000 unit capsule 50,000 unit PO WK RF: 0 potassium chloride 10 mEq Capsule, Extended Release 10 meq PO TID RF: 0 amiloride-hydrochlorothiazide 5-50 mg Tablet 1 tab PO QAM RF: 0 simvastatin 20 mg Tablet 20 mg PO HS RF: 0 escitalopram oxalate 10 mg Tablet 10 mg PO QAM RF: 0 Stand-Alone Forms: Call Back Authorization, [facility], [facility], Work/School Release (Inpt) Krames/Other Patient Handouts: Eat Healthy Discharge Orders: Discharge Order (Routine); Ordered 10/26/18 Ordered By: Shi Spaulding Admission Data Admit Date/Time: 10/25/18 00:46 Attending Provider: Niru Deleon Admit Provider: Niru Deleon Primary Care Provider: Maynor Engle III Other Providers: Ari Burleson Mona D Service: Surgical Services Other Interventions: Discharge Summary Assessment (RN) Last Done: 10/26/18 14:18 Pending Studies at Discharge: Yes (Gallbladder pathology, will be reviewed at follow-up visit) DC Date/Time DO NOT enter until pt leaves facility: 10/26/18 15:09
== END 2018-10-26 15:09 | disposition home or self-care (01) ==
LOC: 3N 22:11 → ED 22:11 → 3N 10-25 01:53

== ENCOUNTER 2019-03-01 06:06 | Inpatient (IN) ==
[2019-02-16 12:45] LABS: Appearance Urine Clear (Clear); Bilirubin Urine Negative (Negative); Blood Urine Negative (Negative); Color Urine Yellow; Glucose Urine UA Negative (Negative); Ketones Urine Negative (Negative); Leukocyte Esterase Urine Negative (Negative); Nitrite Urine Negative (Negative); Protein Urine Negative (Negative); Specific Gravity Urine 1.022 (1.000-1.030); Urobilinogen Urine Negative (Negative)
[2019-02-16 13:41] LABS: Basophils # (auto) 0.03 K/uL (0-0.2); Basophils % (auto) 0.5 %; Eosinophils # (auto) 0.11 K/uL (0-0.5); Eosinophils % (auto) 1.7 %; Hematocrit (blood only) 44.3 % (42-52); Hemoglobin 15.1 g/dL (14.0-18.0); Immature Granulocytes # (auto) 0.02 K/uL (0.00-0.02); Immature Granulocytes % (auto) 0.3 %; Lymphocytes # (auto) 1.14 K/uL (1.2-3.4); Lymphocytes % (auto) 17.6 %; Mean Corpuscular Hemoglobin 30.2 pg (25-34); Mean Corpuscular Hgb Conc 34.1 g/dL (32-36); Mean Corpuscular Volume 88.6 fL (80-100); Mean Platelet Volume 11.2 fL (7.4-10.4); Monocytes # (auto) 0.58 K/uL (0.11-0.59); Neutrophils # (auto) 4.59 K/uL (1.4-6.5); Neutrophils % (auto) 70.9 %; Platelet Count 160 K/uL (130-400); RDW Coefficient of Variation 12.8 % (11.5-14.5); RDW Standard Deviation 41.2 fL (36.4-46.3); White Blood Count 6.47 K/uL (4.8-10.8)
[2019-02-16 13:49] LABS: BUN Creatinine Ratio 12.8 (10-20); Blood Urea Nitrogen 14 mg/dl (7-18); Calcium 9.4 mg/dl (8.5-10.1); Carbon Dioxide 32 mmol/L (21-32); Chloride 104 mmol/L (98-107); Est GFR (African American) 90.3; Est GFR (Non-African American) 77.9; Glucose 95 mg/dl (70-99); Potassium 3.4 mmol/L (3.5-5.1); Sodium 140 mmol/L (136-145)
--- NOTE | 2019-02-20 13:10 | Anesthesiology Consultation ---
Date of Service February 20, 2019 Relatively uncomplicated GA for lap madonna october 2018. Laryngoscopy easy with MAC4. Patient was weak at end of case requiring suggamadex for extubation. Assessment & Plan (1) Encounter for pre-operative examination: Chart Review Chart Review: Acceptable Risk for Surgery and Patient NOT seen in Pre Admission Testing Consults Requested none History Surgery Operation Date: 03/01/19 08:45 Proposed Procedures p Robotic Laparoscopic Assisted Radical Retropubic Prostatectomy Possible Open, Possible Pelvic Lymph Node Disection, Possible Suprapubic Tube Placement - Chidi Godoy MD Height/Weight Height: 5 ft 6 in Weight: 102.058 kg Allergies Allergy/AdvReac Type Severity Reaction Status Date / Time No Known Allergies Allergy Unknown Verified 02/12/19 14:53 Medications Home Medications Medication Instructions Recorded Confirmed Last Taken amiloride-hydrochlorothiazide 1 tab PO QAM 03/03/18 02/12/19 10/24/18 escitalopram 10 mg tablet 10 mg PO DAILY #30 tab 01/29/19 02/12/19 Unknown simvastatin 20 mg tablet 20 mg PO HS #30 tab 01/29/19 02/12/19 Unknown omeprazole 20 mg PO DAILY 02/12/19 02/12/19 Unknown potassium citrate 10 meq PO TID 02/12/19 02/12/19 Unknown Past Medical History Medical History Prostate cancer (Acute) Diagnosed 12/26/18 - [place] 3+4 Anxiety Depression GERD (gastroesophageal reflux disease) Controlled with medication HTN (hypertension) History of kidney stones Hyperlipemia Obesity Seizure HX A CHILD-LAST AGE 11 YRS-NO MEDS SINCE CHILDHOOD Past Family History Family History Father Prostate cancer, Onset Age: 65 Brachytherapy Mother No problems noted. Sister No problems noted. Son No problems noted. Son No problems noted. Son No problems noted. Son No problems noted. Past Surgical History Surgical History S/P colonoscopic polypectomy H/O lithotripsy X 3 - 2015, 2016, 2018 History of cholecystectomy History of prostate biopsy Hx of shoulder surgery Left S/P cystoscopy with ureteral stent placement (and then stent removed) Social History Smoking Status: Never smoker tobacco type: cigarettes Do You Dip or Chew Tobacco: No Hx Alcohol Use: Yes Alcohol type: beer alcohol intake frequency: a few times a month Hx Substance Use: No substance use type: does not use Testing Laboratory Results 02/16/19 12:04 02/16/19 12:04 Urine Color Yellow 02/16/19 12:05 Urine Appearance Clear (Clear) 02/16/19 12:05 Urine pH 7.0 (4.5-7.5) 02/16/19 12:05 Ur Specific [place] 1.022 (1.000-1.030) 02/16/19 12:05 Urine Protein Negative (Negative) 02/16/19 12:05 Urine Glucose (UA) Negative (Negative) 02/16/19 12:05 Urine Ketones Negative (Negative) 02/16/19 12:05 Urine Nitrite Negative (Negative) 02/16/19 12:05 Ur Leukocyte Esterase Negative (Negative) 02/16/19 12:05 Blood Type A Negative 02/16/19 12:05 Antibody Screen NEGATIVE 02/16/19 12:05 02/16/19 12:05 Urine Culture - Final Urine,Clean Catch No growth - less than 1,000 colonies/mL. Electrocardiogram Date: 10/25/18 Findings: + NSR @, + RBBB (inc. rbbb) and + pertinent finding (inferior q waves. unchanged) Chest X-Ray Date: 10/24/18 Findings: + NAD
[~2019-03-01 06:06] MED LIST changes: +ACETAMINOPHEN 1000 MG/100 ML IV IV SCH; -AMLH/550 PO; +CEFAZOLIN 2000MG 2,000 MG/15 ML SYR IV SCH; -FLUO10CA48 PO; +HEPARIN SOD 5,000 UNIT/0.5 ML VIAL SQ SCH; +LR 15ML/HR IV SCH; -POTA1080 PO; -SIMV-151
[2019-03-01] MEDS ORDERED: MoRPHine SULFATE PF 1 MG/ML 10 ML AMP/VIAL ONE (06:51)
[2019-03-01] MEDS ORDERED: fentaNYL citrate 100 MCG/2 ML VIAL ONE ×4 (06:54→11:25)
[2019-03-01] MEDS ORDERED: ROCURONIUM BROMIDE 10 MG/ML 5 ML VIAL ONE (06:54)
[2019-03-01] MEDS ORDERED: PROPOFOL IV EMULSION 10 MG/ML 20 ML VIAL IV ONE (06:54)
[2019-03-01] MEDS ORDERED: MIDAZOLAM HCL 1 MG/ML 2ML VIAL ONE (06:54)
[2019-03-01] MEDS ORDERED: LIDOCAINE HCL 2% 2 ML VIAL/AMP(20MG/ML) INFIL ONE (06:54)
[2019-03-01] MEDS ORDERED: DEXAMETHASONE SOD INJ 4 MG/ML VIAL ONE (06:55)
[2019-03-01] MEDS ORDERED: ONDANSETRON INJ 2 MG/ML 2 ML VIAL ONE (06:55)
[2019-03-01] MEDS ORDERED: BUPIVACAINE 0.5 % 5 MG/1 ML MPF 30ML VIAL ONE (07:05)
--- NOTE | 2019-03-01 07:06 | History & Physical Bridge Note ---
Date of Service March 01, 2019 History & Physical Bridge Note I have examined the patient, reviewed the History & Physical and in the interval since the performance of the History & Physical I have noted the following changes of clinical significance: no changes noted
[2019-03-01] MEDS ORDERED: ACETAMINOPHEN 1000 MG/100 ML IV IV ONE (07:10)
[2019-03-01] MEDS ORDERED: LACTATED RINGER'S 1,000 ML IV ONE (07:36)
[2019-03-01] MEDS ORDERED: GLYCOPYRROLATE 0.2 MG/ML VIAL ONE (08:18)
[2019-03-01] MEDS ORDERED: NEOSTIGMINE METHYLSULFATE 5 MG/5 ML SYR ONE (08:18)
[2019-03-01] MEDS ORDERED: SURGICEL ABSORB HEMOSTAT 2IN X 14IN TOP ONE (10:12)
[2019-03-01] MEDS ORDERED: FLOSEAL HEMOSTATIC MATRIX 10ML TOP ONE (10:12)
[2019-03-01] MEDS ORDERED: LABETALOL HCL IV 5 MG/ML 20ML IV ONE (11:34)
--- NOTE | 2019-03-01 11:41 | Operative Report ---
Post Operative Report Pre & Post Diagnosis Operation Date: 03/01/19 07:30 Pre-Op Diagnosis: Prostate Cancer Post-Op Diagnosis: Prostate Cancer Procedure Operation Date: 03/01/19 07:30 Actual Procedures p Robotic Laparoscopic Assisted Radical Retropubic Prostatectomy and Suprapubic Tube Placement(Not Applicable) - Chidi Godoy MD Surgeon Chidi Godoy MD Judo Instructor [employer] TAM Estimated Blood Loss 100 Findings Consistent with Post-Op Diagnosis Specimens Periprostatic fat, prostate + SVs, bladder neck tissue Description of Procedure RALRP, SPT placement I attest to the content of the Intraoperative Record and any orders documented therein. Any exceptions are noted below.
[2019-03-01] MEDS ORDERED: ATROPINE SULFATE 0.1 MG/ML 10ML SYR IV PRN (11:53)
[2019-03-01] MEDS ORDERED: FLUMAZENIL 0.1 MG/1 ML 10 ML VIAL IV PRN (11:53)
[2019-03-01] MEDS ORDERED: LABETALOL HCL IV 5 MG/ML 20ML IV PRN (11:53)
[2019-03-01] MEDS ORDERED: PROMETHAZINE HCL 12.5 MG in SODIUM CHLORIDE 0.9% 50 ML IV PRN (11:53)
[2019-03-01] MEDS ORDERED: fentaNYL citrate 100 MCG/2 ML VIAL IV PRN (11:53)
[2019-03-01] MEDS ORDERED: ePHEDrine sulfate 50 MG/ML AMP IV PRN (11:53)
[2019-03-01] MEDS ORDERED: NALOXONE HCL 0.4 MG/1 ML VIAL/CARP IV PRN (11:53)
[2019-03-01] MEDS ORDERED: ONDANSETRON INJ 2 MG/ML 2 ML VIAL IV PRN (11:53)
[2019-03-01] MEDS: LACTATED RINGER'S 1,000 ML IV SCH ×2 (12:02→20:46)
[2019-03-01 12:29] LABS: Basophils # (auto) 0.01 K/uL (0-0.2); Basophils % (auto) 0.1 %; Hematocrit (blood only) 39.3 % (42-52); Hemoglobin 13.5 g/dL (14.0-18.0); Immature Granulocytes # (auto) 0.01 K/uL (0.00-0.02); Immature Granulocytes % (auto) 0.1 %; Lymphocytes # (auto) 0.53 K/uL (1.2-3.4); Lymphocytes % (auto) 6.3 %; Mean Corpuscular Hemoglobin 30.3 pg (25-34); Mean Corpuscular Volume 88.1 fL (80-100); Mean Platelet Volume 10.2 fL (7.4-10.4); Monocytes # (auto) 0.17 K/uL (0.11-0.59); Neutrophils # (auto) 7.67 K/uL (1.4-6.5); Neutrophils % (auto) 91.5 %; Platelet Count 150 K/uL (130-400); RDW Coefficient of Variation 12.7 % (11.5-14.5); RDW Standard Deviation 40.9 fL (36.4-46.3); Red Blood Count 4.46 M/uL (4.7-6.1); White Blood Count 8.39 K/uL (4.8-10.8)
[2019-03-01 12:31] LABS: Mean Corpuscular Hgb Conc 34.4 g/dL (32-36)
--- NOTE | 2019-03-01 12:36 | Anesthesiology Progress Note ---
Date of Service March 01, 2019 Anesthesia Post Procedure Vital Signs Vital Signs: Temp Pulse Pulse Resp BP BP Pulse Ox 03/01/19 12:30 36.4 C L 67 14 117/66 96 03/01/19 12:20 72 16 136/76 97 03/01/19 12:10 65 14 116/67 96 03/01/19 12:00 59 L 17 122/65 98 03/01/19 11:54 37.3 C 72 20 118/66 97 03/01/19 07:00 36.6 C 74 18 03/01/19 06:33 83 18 126/70 95 03/01/19 06:31 45 L 16 91/55 L 99 03/01/19 06:21 86 18 143/99 H 97 Transfer of Care Handoff Completed per policy Notes Mental Status: alert / awake / arousable Patient Amnestic to Procedure: Yes Nausea / Vomiting: adequately controlled Pain: adequately controlled Airway Patency, RR, SpO2: stable & adequate BP & HR: stable & adequate Hydration State: stable & adequate Anesthetic Complications: no major complications apparent
[2019-03-01 12:45] LABS: Calcium 8.8 mg/dl (8.5-10.1); Creatinine Clr Calc Pharmacy 83.7 ml/min; Est GFR (African American) 85.5; Est GFR (Non-African American) 73.8; Potassium 3.9 mmol/L (3.5-5.1)
[2019-03-01] MEDS ORDERED: OXYCODONE HCL IR 5 MG TAB (IMMEDIATE RELEASE) PO PRN ×2 (12:52)
[2019-03-01] MEDS ORDERED: HYDROmorphone INJ 1 MG/ML SYRINGE IV PRN ×2 (12:52)
[2019-03-01] MEDS: POTASSIUM CITRATE 10 MEQ TAB PO SCH ×2 (14:10→20:08)
[2019-03-01] MEDS: CEFAZOLIN 2000MG 2,000 MG/15 ML SYR IV SCH (15:39)
--- NOTE | 2019-03-01 16:59 | Urology Progress Note ---
Date of Service March 01, 2019 Assessment & Plan (1) Prostate cancer: POD #0 s/p RALP with Dr. Godoy Pt progressing well. Some discomfort, controlled with PRN pain control. Encouraged use of IS/ ambulation as tolerated. Will add IV tylenol to regimen. Continue clear liquids. Will advance tomorrow if continues to do well through the night. Subjective 53yo M POD #0 s/p RALP Pt progressing as expected. Tolerating sips of water. Has not tried any food yet. Some lower abdominal discomfort with ambulation. Denies n/v. Denies cp/sob. SP tube and maurer draining clear with some bloody strains. MOOK putting out moderate amount of bloody drainage. incisions c/d/i. Post op labs reviewed, within expected limits. Review of Systems Review of Systems: All systems reviewed & are unremarkable except as noted in HPI & below Physical Exam Physical Exam: A&Ox3 RRR Abd soft, slightly tender in left lower quandrant around MOOK site incisions c/d/i sp tube and maurer draining clear with bloody strands. Results & Data Vital Signs (Past 12 Hours) Vital Signs Temp Pulse Pulse Resp BP BP Pulse Ox 03/01/19 15:50 36.6 C 75 16 153/87 H 97 03/01/19 14:44 88 16 157/84 H 97 03/01/19 13:52 36.4 C L 88 16 148/83 H 96 03/01/19 13:19 74 16 145/82 H 96 03/01/19 12:50 36.6 C 68 16 120/72 92 03/01/19 12:30 36.4 C L 67 14 117/66 96 03/01/19 12:20 72 16 136/76 97 03/01/19 12:10 65 14 116/67 96 03/01/19 12:00 59 L 17 122/65 98 03/01/19 11:54 37.3 C 72 20 118/66 97 03/01/19 07:00 36.6 C 74 18 03/01/19 06:33 83 18 126/70 95 03/01/19 06:31 45 L 16 91/55 L 99 03/01/19 06:21 86 18 143/99 H 97 PG Care Time/CCT Total # of Minutes Spent Total Time Spent with Patient: Total time spent is greater than 50% in coordination of care (as documented) at patient's floor/unit and/or counseling patient:
[2019-03-01] MEDS: ACETAMINOPHEN 1,000 MG/100 ML VIAL IV SCH (17:00)
[2019-03-01] MEDS: HEPARIN SOD 5,000 UNIT/0.5 ML VIAL SQ SCH (20:09)
[2019-03-01] MEDS ORDERED: SIMVASTATIN 20 MG TAB PO SCH (21:00)
[2019-03-02] MEDS: CEFAZOLIN 2000MG 2,000 MG/15 ML SYR IV SCH (00:14)
[2019-03-02] MEDS: ACETAMINOPHEN 1,000 MG/100 ML VIAL IV SCH ×3 (00:15→16:35)
--- NOTE | 2019-03-02 00:53 | Operative Report ---
DATE OF OPERATION: 03/01/2019 PREOPERATIVE DIAGNOSES: [place] 3+4 adenocarcinoma of the prostate with a pretreatment prostate-specific antigen of 6.9, clinical T1c. POSTOPERATIVE DIAGNOSES: [place] 3+4 adenocarcinoma of the prostate with a pretreatment prostate-specific antigen of 6.9, clinical T1c. PROCEDURES: Robot-assisted laparoscopic radical retropubic prostatectomy with bilateral nerve sparing dissection, suprapubic tube placement. SURGEON: Chidi Godoy MD ANESTHESIA: General anesthesia with endotracheal intubation plus local at all port sites. AGRICULTURAL PRODUCE PACKER: YONATAN Champion. Application Analyst was present throughout the case for retraction, suture and instrument passage, the patient positioning, suction and general patient safety. ESTIMATED BLOOD LOSS: 100 mL. INTRAVENOUS FLUIDS: 2400 mL crystalloid. SPECIMENS SENT TO PATHOLOGY: Periprostatic fat, bladder neck tissue, prostate plus seminal vesicles. DRAINS LEFT IN PLACE: Include an 18-Greek silicone De Leon catheter per urethra with 10 mL of sterile water in the balloon, 16-Greek silicone suprapubic tube with 10 mL of sterile water in the balloon and #10 MOOK drain in left lower quadrant. FINDINGS: Watertight anastomosis with excellent hemostasis after completion of the case. A continent bladder neck intraoperatively. COMPLICATIONS: None. BRIEF HISTORY: This patient is a pleasant 54-year-old male who has undergone a prostate biopsy for an elevated PSA and then found to have [place] 3+3 and 3+4 adenocarcinoma with, [place] 4 element representing 5% of one core. After discussion of risks and benefits of various forms of intervention, the patient has decided upon a robotic prostatectomy to manage his disease. Seeing his PSA value and a low volume [place] 4 disease, bilateral nerve sparing dissection was considered. A nomogram estimated lymph node involvement is less than 2% and therefore lymph node dissection is not planned. Please see outpatient H and P for further details. Intravenous cephalosporins are provided for antibiotic coverage and sequential compression devices used for deep venous thrombosis prophylaxis. Intravenous Tylenol was used for additional perioperative analgesia. Subcutaneous heparin was also provided for deep venous thrombosis prophylaxis preoperatively. DESCRIPTION OF PROCEDURE: The patient was properly identified and brought in to the operative suite after identification of appropriate consent on the chart. General anesthesia with endotracheal intubation was initiated and the patient was prepped and draped in standard fashion for this procedure. manager maritime-out procedure was followed. All port sites were anesthetized with local prior to incision. The patient's previous cholecystectomy extraction port in the infraumbilical location in a transverse fashion was used to gain access to the abdomen. A visual obturator with a 0 degree laparoscope was used to enter the abdomen and insufflated to 15 mmHg. No evidence of any injury to the intraabdominal structures on placement of the trocar was noted. Trocars were placed for 4th arm robotic template including 2 left-sided 7 mm robotic ports, 1 right-sided 7 mm robotic port, and a 5 and 12 mm real estate executive assistant port. The patient was placed in Trendelenburg and robot was brought in and docked. A 0-degree lens was used to drop the bladder down to the level of the pubic bone. Periprostatic fat was dissected free and excised. This was sent as a separate specimen of periprostatic fat. Endopelvic fascia was sharply entered on both sides and the dorsal venous complex was skeletonized. The lateral aspect of the prostate was dissected free down to the level of the apex. Nerve sparing dissection was initiated at this time. Dorsal venous complex was controlled using 0 Vicryl suture on a CT1 needle in a [id number] fashion with excellent hemostasis. After this was complete, a 30-degree down lens was used to place the bladder neck on traction. This was able to be skeletonized at the level of the De Leon catheter with a continent bladder neck noted after division. The catheter was exposed and brought up through the anterior defect to be used for anterior traction on the prostate gland. Posterior bladder neck was divided and the bladder neck was dropped in midline down to the vas deferens and seminal vesicles. The inferior bladder pedicles were skeletonized and large vessels were controlled using cold Weck clips. The lateral aspects of the prostate were dissected down to the prosthetic pedicles which were also controlled using Weck clips. The vas deferens was divided in the midline and used for anterior traction. Seminal vesicles were also dissected free and intact. The rectum was dropped in the midline down to the level of the apex of the prostate. Nerve sparing dissection was completed on both sides and attention was then turned to the dorsal venous complex. Due to some hyperostosis of pubis, a 0-degree lens was used to visualize the dorsal venous complex. This was divided using hot scissors and urethra was skeletonized with extravesical urethral length. Cold scissors were used to divide the mid-urethral stump and rectourethralis fibers. Prosate once freed was brought up into the abdomen and was placed within an EndoCatch bag for retrieval at the end of the case. Attention was then turned to the pelvis where excellent hemostasis was noted. Rectum was insufflated under saline irrigation to ensure the lack of injury which was noted to be absent. The rectal tube was then removed after ensuring no rectal perforation and FloSeal tissue sealant was placed within the prostatic bed. Again, seeing the low risk of lymph node involvement based on the patient's nomogram, lymph node dissection was not carried out. A double armed V-Loc suture was used to create a running anastomosis between the urethra and the bladder neck. A silicone De Leon catheter was visualized entering the bladder prior to completion of the closure. A 10 mL of sterile water were placed within the balloon and bladder was irrigated with greater than 120 mL of sterile irrigant and noted to be watertight. Seeing the excellent anastomosis, a decision was made to place a suprapubic tube as it had been discussed with the patient preoperatively. A small suprapubic incision was made and after desufflating the urethra, De Leon catheter and bringing it back into the urethra, a percutaneous trocar site was used to gain access to the abdomen and was visualized entering the bladder under direct visualization. The trocar was removed and a 16-Greek silicone catheter was placed into the bladder with 10 mL of sterile water in the balloon. The sheath was peeled away and the suprapubic tube was visually confirmed to be within the bladder. A De Leon catheter was replaced within the bladder and both catheters were irrigated with isovolumic return out of the other catheter. No evidence of leak. Fourth arm was removed and a #10 MOOK drain was brought in via the fourth arm port. This was placed within the confines of the pelvis while avoiding placing it directly over the anastomosis. Robotic instruments were removed and robot was deep. The camera was brought in via the real estate executive assistant 12 mm port and string to the EndoCatch bag was brought up through this infraumbilical port for retrieval. Remaining trocars were removed and the supraumbilical port was enlarged sufficiently to allow for easy removal of the specimen bag. Excess carbon dioxide gas was removed from the abdomen. The infraumbilical incision was closed using 0 Vicryl suture on UR-5 needle in a running fashion. Subcutaneous space was closed using 2-0 Vicryl. A 2-0 silk was also used to secure the suprapubic tube in place. A 4-0 Monocryl was used on the remaining skin incisions followed by Dermabond. A catheter was placed to gravity drainage. Anesthesia was reversed. The patient was transferred to the recovery room in a stable condition. FOLLOWUP CARE: The patient will be admitted to the floor for standard postoperative management. I attest to the content of the Intraoperative Record and any orders documented therein. Any exception s are noted below.
--- NOTE | 2019-03-02 06:41 | Urology Progress Note ---
Date of Service March 02, 2019 Assessment & Plan (1) Prostate cancer: A/P 54 yo male POD#1 s/p RALRP, SPT. Will advance diet today. Continue ambulation in halls. F/u AM labs. Acceptable MOOK output - will remove urethral maurer and monitor output. If pain with MOOK fullness recurs this AM, will consider a STAT MOOK Cr to check output - I am not overly suspicious of a urine leak. Likely DC home later today if does well. Subjective 54 yo male POD#1 s/p RALRP, SPT placement. Past notes and labs reviewed, AM labs pending. SPT draining majority of urine, acceptable MOOK output. He notes pain last night in lower abdomen when MOOK full, ~140 cc output total on flowsheets, straw colored serosang liquid. OP has since abated with resolution of his symptoms. + ambulating, + hungry for food, no f/c/n/v. Wants urethral maurer out, DC home with SPT if possible. Review of Systems Constitutional: no fever and no chills Eyes: no diplopia Ear, Nose, Mouth, Throat: no ear trauma Respiratory: no hemoptysis Cardiovascular: no chest pain Integumentary: no acne and no boil Neurologic: no paralysis Psychiatric: no hopelessness Allergy / Immunological: no tongue swelling Physical Exam Constitutional: well developed and well nourished; no acute distress Eyes: eyes not dysmorphic ENMT: Ears: no external ear abnormality Neck: trachea midline; no anterior neck swelling Respiratory: no respiratory distress and does not use accessory muscles Cardiovascular: Vessels: radial pulses present Gastrointestinal (Abdomen): Inspection/Auscultation: abdomen not distended Percussion/Palpation: abdomen soft; abdomen nontender inc c/d/i with dermabond Musculoskeletal: Head/Neck/Chest: normocephalic and neck supple Skin: normal turgor Neurologic: awake; not obtunded Psychiatric: Orientation: oriented x 3 Lymphatic: no lymphadenopathy Results & Data Vital Signs (Past 12 Hours) Vital Signs Temp Pulse Resp BP Pulse Ox 03/02/19 03:00 36.8 C 87 16 150/80 H 94 03/01/19 23:15 37.2 C 98 H 16 160/76 H 93 03/01/19 22:01 95 03/01/19 19:03 36.4 C L 94 H 16 165/76 H 97 Laboratory Results Laboratory Results - last 48 hr 03/01/19 03/01/19 12:19 12:19 WBC 8.39 RBC 4.46 L Hgb 13.5 L Hct 39.3 L MCV 88.1 MCH 30.3 MCHC 34.4 RDW Std Deviation 40.9 RDW Coeff of Beto 12.7 Plt Count 150 MPV 10.2 Immature Gran % (Auto) 0.1 Neut % (Auto) 91.5 Lymph % (Auto) 6.3 [place] % (Auto) 2.0 Eos % (Auto) 0.0 Baso % (Auto) 0.1 Immature Gran # (Auto) 0.01 Neut # (Auto) 7.67 H Lymph # (Auto) 0.53 L [place] # (Auto) 0.17 Eos # (Auto) 0.00 Baso # (Auto) 0.01 Sodium 139 Potassium 3.9 Chloride 104 Carbon Dioxide 28 Anion Gap 6.0 BUN 23 H Creatinine 1.13 Est Cr Clr Drug Dosing 83.7 Est GFR ( Amer) 85.5 Est GFR (Non-Af Amer) 73.8 BUN/Creatinine Ratio 20.0 Glucose 161 H Calcium 8.8 PG Care Time/CCT Total # of Minutes Spent Total Time Spent with Patient: Total time spent is greater than 50% in coordination of care (as documented) at patient's floor/unit and/or counseling patient:
[2019-03-02 07:01] LABS: Hematocrit (blood only) 41.2 % (42-52); Hemoglobin 13.7 g/dL (14.0-18.0); Immature Granulocytes # (auto) 0.01 K/uL (0.00-0.02); Immature Granulocytes % (auto) 0.1 %; Lymphocytes % (auto) 9.8 %; Mean Corpuscular Hemoglobin 29.7 pg (25-34); Mean Corpuscular Hgb Conc 33.3 g/dL (32-36); Mean Corpuscular Volume 89.4 fL (80-100); Mean Platelet Volume 10.5 fL (7.4-10.4); Monocytes # (auto) 0.76 K/uL (0.11-0.59); Monocytes % (auto) 7.5 %; Neutrophils # (auto) 8.43 K/uL (1.4-6.5); Neutrophils % (auto) 82.6 %; Platelet Count 160 K/uL (130-400); RDW Coefficient of Variation 12.9 % (11.5-14.5); RDW Standard Deviation 42.2 fL (36.4-46.3); Red Blood Count 4.61 M/uL (4.7-6.1)
[2019-03-02 07:33] LABS: BUN Creatinine Ratio 12.5 (10-20); Calcium 8.3 mg/dl (8.5-10.1); Creatinine Clr Calc Pharmacy 94.6 ml/min; Est GFR (African American) 99.2; Est GFR (Non-African American) 85.5; Potassium 3.5 mmol/L (3.5-5.1)
--- NOTE | 2019-03-02 07:41 | Anesthesiology Progress Note ---
Date of Service March 02, 2019 Anesthesia Post Procedure Vital Signs Vital Signs: Temp Pulse Pulse Resp BP BP Pulse Ox 03/02/19 03:00 36.8 C 87 16 150/80 H 94 03/01/19 23:15 37.2 C 98 H 16 160/76 H 93 03/01/19 22:01 95 03/01/19 19:03 36.4 C L 94 H 16 165/76 H 97 03/01/19 15:50 36.6 C 75 16 153/87 H 97 03/01/19 14:44 88 16 157/84 H 97 03/01/19 13:52 36.4 C L 88 16 148/83 H 96 03/01/19 13:19 74 16 145/82 H 96 03/01/19 12:50 36.6 C 68 16 120/72 92 03/01/19 12:30 36.4 C L 67 14 117/66 96 03/01/19 12:20 72 16 136/76 97 03/01/19 12:10 65 14 116/67 96 03/01/19 12:00 59 L 17 122/65 98 03/01/19 11:54 37.3 C 72 20 118/66 97 Pain Intensity Bilateral Abdomen: Pain Intensity: 4 Notes Mental Status: alert / awake / arousable and participated in evaluation Patient Amnestic to Procedure: Yes Nausea / Vomiting: adequately controlled Pain: adequately controlled Airway Patency, RR, SpO2: stable & adequate BP & HR: stable & adequate Hydration State: stable & adequate Anesthetic Complications: no major complications apparent and Pt Satisfied with anesthetic care
[2019-03-02] MEDS: POTASSIUM CITRATE 10 MEQ TAB PO SCH ×2 (08:45→13:39)
[2019-03-02] MEDS: HEPARIN SOD 5,000 UNIT/0.5 ML VIAL SQ SCH (08:46)
[2019-03-02] MEDS ORDERED: PANTOprazole 40 MG TAB PO SCH (09:00)
[2019-03-02] MEDS ORDERED: ESCITALOPRAM OXALATE 10 MG TAB PO SCH (09:00)
[2019-03-02] MEDS ORDERED: AMILORIDE/HCTZ 5/50MG TAB PO SCH (09:00)
[2019-03-02] MEDS: LACTATED RINGER'S 1,000 ML IV SCH (09:47)
--- NOTE | 2019-03-02 11:55 | Urology Progress Note ---
Date of Service March 02, 2019 Assessment & Plan (1) Prostate cancer: A/P 54 yo male POD#1 s/p RALRP, SPT. AM labs within normal limits. Tolerating regular diet well. Creatinine MOOK obtained - elevated at 32. Dr. Godoy made aware. Plan to continue to watch output for the next few hours. If sudden increase in output again, please contact Dr. Ko urgently for possible urethral catheter - to be placed by urologist only. If MOOK output stays minimal - plan to discharge home around 4pm with SP Tube and MOOK Drain. Expected clinical course and discharge instructions reviewed. 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 Subjective 54 yo male POD#1 s/p RALRP, SPT placement. Pt rechecked this AM on multiple occasions. He is doing well, tolerating PO. He had one liquid BM with flatus, relieved his bloating. AM labs reviewed - with WNL. Still having some MOOK drainage - 160cc in 2 hours this AM since urethral catheter removed. Dr Godoy made aware, plan to send MOOK creatinine. Pt ambulating in halls without difficulty. Review of Systems Review of Systems: All systems reviewed & are unremarkable except as noted in HPI & below Physical Exam Physical Exam: A&Ox3 RRR abd, soft MOOK draining minimal clear liquid, scant clot SP tube draining yellow with minimal clots Results & Data Vital Signs (Past 12 Hours) Vital Signs Temp Pulse Pulse Resp BP Pulse Ox 03/02/19 07:50 36.9 C 78 16 155/86 H 98 03/02/19 03:00 36.8 C 87 16 150/80 H 94 PG Care Time/CCT Total # of Minutes Spent Total Time Spent with Patient: Total time spent is greater than 50% in coordination of care (as documented) at patient's floor/unit and/or counseling patient:
--- NOTE | 2019-03-07 12:02 | Discharge Summary ---
Date of Service March 07, 2019 Admission HPI Per Admitting Provider Patient with prostate cancer for prostatectomy. Admission Exam Per Admitting Provider NAD CTAB S1 S2 Soft, NT, ND Principal Diagnosis Prostate cancer Discharge Exam Constitutional well developed and well nourished; no acute distress Eyes eyes not dysmorphic ENMT Ears: no external ear abnormality Neck trachea midline; no anterior neck swelling Respiratory no respiratory distress and does not use accessory muscles Cardiovascular Vessels: radial pulses present Gastrointestinal (Abdomen) Inspection/Auscultation: abdomen not distended Percussion/Palpation: abdomen soft; abdomen nontender Musculoskeletal Head/Neck/Chest: normocephalic and neck supple Skin normal turgor Neurologic awake; not obtunded Psychiatric Orientation: oriented x 3 Lymphatic no lymphadenopathy Discharge Data Allergies Allergy/AdvReac Type Severity Reaction Status Date / Time No Known Allergies Allergy Unknown Verified 03/05/19 09:24 Procedures Performed Operation Date: 03/01/19 07:30 Actual Procedures p Robotic Laparoscopic Assisted Radical Retropubic Prostatectomy and (Not Applicable) - Chidi Godoy MD s Suprapubic Tube Placement(Not Applicable) - Chidi Godoy MD Hospital Course (1) Prostate cancer: A/P 54 yo male POD#1 s/p RALRP, SPT. AM labs within normal limits. Tolerating regular diet well. Creatinine MOOK obtained - elevated at 32. Dr. Godoy made aware. Plan to continue to watch output for the next few hours. If sudden increase in output again, please contact Dr. Ko urgently for possible urethral catheter - to be placed by urologist only. If MOOK output stays minimal - plan to discharge home around 4pm with SP Tube and MOOK Drain. Expected clinical course and discharge instructions reviewed. 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 Total Time Total Time Spent Total Time Spent (In Minutes): 5 Discharge Plan Discharge Items Patient Disposition: Home - Self-Care Reason For Visit: Prostate Cancer Discharge Diagnosis: prostate cancer Condition on Discharge: Good Activity: Per Instructions section Lifting: No more than 10 pounds Bathing: Keep incision dry Bathing Comment: Okay to shower, avoid tub baths, soaking. Sexual Activity: Wait until after follow-up appointment Exercise/Sports: Wait until after follow-up appointment Driving/Machine Use: Do not drive while taking prescription pain control Non-emergency contact: Urologist Call non-emergency contact if: your symptoms worsen, your pain is not controlled, your pain is concerning for you, your temperature is above 101, your wound has increased redness, your wound has increased drainage and your wound pain has increased Follow-up/Referrals: Chidi Godoy MD [Physician] - 03/21/19 4:45 pm (Post op visit with Dr. Godoy) Maynor Engle III, MD [Primary Care Provider] - [facility],RN [Physician] - 03/05/19 9:00 am (MOOK drain removal, NOT suprapubic tube. ) [facility],Nurse [Physician] - 03/09/19 11:40 am (SP Tube catheter removal) Diet: Regular Addtl Attending Provider Instructions: Please take all medications as prescribed and keep all follow-ups as scheduled. Please call our office at [phone] with any questions, concerns or need to reschedule appointments for any reason. We are happy to assist you. Please note, you are going home with two drains. The one in the center, lower abdomen is your suprapubic catheter - draining urine. The drain to your left abdomen is draining the fluid from surgery. If you notice a sudden update in drainage - filling your container every hour for instance and this persists please call the on-call physician (Dr. Ko) through the main number for the office, or call the answering service at [phone]. Please note, NOONE other than one of the [facility] should attempt placing a urethral catheter. Activity: We recommend having someone with you for the first few days after surgery to help care for you. For the first 2 weeks after surgery, we would like you to get up and walk around your house. However, we recommend limit physical activity that would increase your heart rate. This will allow your body to rest and heal. Take naps if you feel tired. Don't lift anything heavier than 10 pounds, mow the law or ride a bicycle until your follow-up appointment. Please avoid long car rides. We have sent an antibiotic to your pharmacy of choice. Please begin antibiotic as prescribed the day BEFORE your scheduled voiding trial at [facility]. Please continue antibiotic every 12 hours through the day AFTER your voiding trial. Home Care: Unless directed otherwise, drink 6 to 8 glasses of water a day (enough to keep your urine light colored). This will also help keep a healthy flow of urine. We recommend using a stool softener for the first two weeks to avoid constipation. [place] Catheter or Suprapubic Catheter care: Keep the catheter well secured with either a leg back or leg strap with large bag. Empty your bag when it's about half full. You may notice some blood in the bag. This is normal after surgery and while the catheter is in place. Use mild soap (such as Dove or Dial) and water to wash the catheter and the head of your penis daily, or more frequently if needed. Return to your normal diet, we encourage good protein intake to promote healing. You may shower as normal. Please avoid tub baths or soaking until catheter removed and incisions well healed. Wearing sweat pants while you have the catheter is recommended, they will be more comfortable. Follow-up Your follow up appointments for having your catheter removed, and follow up with your physician should already be scheduled. If you have any questions regarding this, please contact our office. Your final pathology report will be discussed at your physician follow-up appointment. Call [facility] at [phone] right away if you have any of the following: Chest pain or trouble breathing (call 251 or go to the hospital) Fever of 101F or higher, uncontrolled vomiting Heavy bleeding, clots, or bright red blood from the catheter Catheter that falls out or stops draining Foul-smelling discharge from your catheter Redness, swelling, warmth, or increased pain at your incision site Drainage, pus, or bleeding from your incision Pending Studies at Discharge: Yes (prostate, SV and vas specimen) Stand-Alone Forms: My [facility] Medications and DC Order Prescriptions: New ciprofloxacin HCl 500 mg tablet 500 mg PO BID Qty: 6 RF: 0 docusate sodium [Colace] 100 mg capsule 100 mg PO BID Qty: 60 RF: 0 oxycodone-acetaminophen [Percocet] 5-325 mg tablet 1 tab PO TID PRN (Reason: pain) Qty: 20 RF: 0 Continued escitalopram oxalate 10 mg tablet 10 mg PO DAILY Qty: 30 RF: 5 simvastatin 20 mg tablet 20 mg PO HS Qty: 30 RF: 5 amiloride-hydrochlorothiazide 5-50 mg Tablet 1 tab PO QAM RF: 0 potassium citrate 10 mEq (1,080 mg) Tablet Extended Release 10 meq PO TID RF: 0 omeprazole 20 mg Tablet,Delayed Release (Dr/Ec) 20 mg PO DAILY RF: 0 Discharge Orders: Discharge Order (Routine); Ordered 03/02/19 Ordered By: Lilian Jeffers/Other Patient Handouts: Tube Ricky De La Rosa Drainage Care, Leg Bag Care Dc Admission Data Admit Date/Time: 03/01/19 11:51 Attending Provider: Chidi Godoy I. Admit Provider: Chidi Godoy I. Primary Care Provider: Maynor Engle III Other Interventions: Discharge Summary Assessment (RN) Last Done: 03/02/19 13:51 DC Date/Time DO NOT enter until pt leaves facility: 03/02/19 17:45
== END 2019-03-02 17:45 | disposition home or self-care (01) | DRG 708 ==
LOC: ASU 06:06 → 3W 11:51